=== PATIENT | female | born 1945 | race Caucasian/White ===

== ENCOUNTER → 2019-07-25 16:59 | Outpatient (CLI) | payer MEDICARE, MEDICAID, SELFPAY ==
[2019-07-25 17:26] LABS: Basophils % 0.8 % (0.1-2.0); Eosinophils # 0.2 K/mm3 (0.0-0.4); Eosinophils % 3.3 % (0.1-12.0); Hematocrit 33.1 % (37.0-47.0); Hemoglobin 10.2 g/dL (12.2-16.2); Lymphocytes # 1.1 K/mm3 (0.7-4.5); Lymphocytes % 22.4 % (10-50); Mean Corpuscular HGB Conc 30.8 g/dL (31.8-35.4); Mean Corpuscular Hemoglobin 27.3 pg (27.0-31.2); Mean Corpuscular Volume 88.5 fl (81-99); Mean Platelet Volume 8.2 fl (7.4-10.4); Monocytes # 0.2 K/mm3 (0.1-1.0); Monocytes % 4.5 % (1.7-9.3); Neutrophils # 3.4 K/mm3 (1.8-7.8); Platelet Count 207 K/mm3 (142-424); Red Blood Count 3.74 M/mm3 (4.20-5.40); Red Cell Distribution Width 14.5 % (11.5-17.5); White Blood Count 4.9 K/mm3 (4.8-10.8)
[2019-07-25 17:59] LABS: Erythrocyte Sedimentation Rate 57 mm/hr (0-30)
[2019-07-25 18:18] LABS: Alanine Aminotransferase 25 U/L (12-78); Albumin Level 3.2 gm/dL (3.4-5.0); Albumin/Globulin Ratio 0.8 (1.1-1.8); Alkaline Phosphatase 222 U/L (46-116); Anion Gap 16.5 mEq/L (5-15); Aspartate Amino Transferase 46 U/L (15-37); Bilirubin,Total 0.7 mg/dL (0.2-1.0); Blood Urea Nitrogen 18 mg/dL (7-18); Calcium 8.9 mg/dL (8.5-10.1); Carbon Dioxide 22 mmol/L (21.0-32.0); Chloride 108 mmol/L (98-107); Chol/HDL Ratio 2.5 (1-3.5); Cholesterol 139 mg/dL (140-200); Creatinine,Serum 1.07 mg/dL (0.55-1.02); Estimated Glomerular Filt Rate 50 ml/min (>60); GFR (African American) 60 ML/MIN (>60); Globulin 4.1 gm/dl (1.3-3.2); Glucose 81 mg/dL (74-106); HDL Cholesterol 55 mg/dL (29-89); LDL Cholesterol 69 mg/dL (0-130); Potassium 4.5 mmoL/L (3.5-5.1); Sodium 142 mmol/L (136-145); T4 (Thyroxine) 9.2 ug/dl (4.7-13.3); Thyroid Stimulating Hormone 2.89 uIU/ml (0.358-3.740); Total Protein,Serum 7.3 gm/dL (6.4-8.2); Triglycerides 77 mg/dL (30-200); VLDL Cholesterol 15 mg/dL (0-40)
[2019-07-25 19:43] LABS: C-Reactive Protein < 0.2 mg/dL (0.0-0.9)
[2019-07-27 08:12] LABS: Iron 40 ug/dL (27-139); UIBC 350 ug/dL (118-369)
[2019-07-27 20:03] LABS: Iron Saturation 10 % (15-55)
== END ==
PROVIDERS: Visit Provider Nurse Practitioner Family
DX: I10 Essential (primary) hypertension (principal); M79.89 Other specified soft tissue disorders; R29.898 Other symptoms and signs involving the musculoskeletal system; D64.9 Anemia, unspecified
CPT/HCPCS: 80053; 80061; 83540; 83550; 84436; 84443; 85025; 85651; 86140

== ENCOUNTER → 2019-08-19 10:52 | Outpatient (CLI) | payer MEDICARE, MEDICAID, SELFPAY ==
--- NOTE | 2019-08-19 | CA_ITS ---
APPROVED REPORT Exam: Pharmacologic Technologist: Rowan Ponce Ht: 4 ft 11 in Wt: 183 lbs BSA: 1.78 m2 HR: 63 bpm BP: 119/58 mmHg Indications: Edema, Abnormal EKG Medical History Medications: Omeprazole,,,,, Furosemide (LASIX),,,,, Vitamin D3,,,,, Losartan,,,,, SpirOnolactone,,,,, NYstatin,,,,, Clobetasol,,,,, Stress Test Details Test: LEXISCAN HR Resting HR: 68 bpm Max Heart Rate (APMHR): 144 bpm Max HR Achieved: 106 bpm Target HR (85% APMHR): 122 bpm % of APMHR: 73 Recovery HR: 96 bpm BP Resting BP: 119.0/58.0 mmHg Max BP: 137.0/53.0 mmHg Recovery BP: 118.0/48.0 mmHg ECG Clinical Exercise duration: 04:02 min Highest Stage Achieved: Exercise capacity: 1.0 METs Stress ECG Conclusion Resting ECG: Sinus rhythm Lexiscan portion complete. Symptoms: Shortness of breath at peak infusion, resolved in recovery. No chest pain. Arrhythmias/Ectopy: No ectopy noted. ST-T Changes: less than 1.5mm ST Depression. Conclusion: Images to follow. Test Summary REST . . . . . . . Resting REST 10:32 . . 68 . 119/ 58 . . Stage 1 01:00 . . 100 . . . . Stage 2 01:00 . . 106 . . . . Stage 3 01:00 . . 96 . 129/ 55 . . Stage 4 01:00 . . 96 . 131/ 59 . . Stage 4 01:02 . . 97 . 131/ 59 . Stop exercise at 04:02 RECOVERY 01:00 . . 95 . 137/ 53 . . RECOVERY 02:00 . . 97 . 137/ 53 . . RECOVERY 03:00 . . 95 . 137/ 53 . . RECOVERY 04:00 . . 87 . 117/ 51 . . RECOVERY 04:55 . . 96 . 118/ 48 . . Electronically signed by : Krishan Turner, 08/19/2019 18:49:06
--- NOTE | 2019-08-19 10:54 | CA_ITS ---
APPROVED REPORT EXAM: Comprehensive 2D, Doppler, and color-flow Echocardiogram General Road Production Manager: Aarti Dyer RDCS Ht: 4 ft 11 in Wt: 182lbs BSA: 1.77 BP: 155/57 mmHg Indications: edema,abn ekg 2D Dimensions LVOT 1.70 cm (M/F) 1.5-2.5 M-Mode Dimensions RVDd 1.41 cm (0.9-2.6) LVDd 5.63 cm (3.5-5.7) LVDs 3.96 cm (3.5-5.7) IVSd 1.01 cm (0.6-1.1) PWd 0.94 cm (0.6-1.1) EF (Teich) 56.10% FS 29.70% EDV (Teich) 155.60 mL ESV (Teich) 68.30 mL LV Diastology E/A Ratio 0.75 Mitral Valve MV A Velocity 99.00 (40-130 cm/s) Left Ventricle Left atrium is mildly enlarged, left ventricle is normal size, mild concentric left ventricular hypertrophy, visually estimated ejection fraction 55% with no regional wall motion abnormality. Grade 1 diastolic dysfunction seen without tissue Doppler evidence of raise left atrial pressure. Right Ventricle Right atrium and right ventricular mildly enlarged with normal contractility. Aortic Valve Aortic valve is minimally thickened and fibrosed. There is no aortic stenosis aortic insufficiency. Mitral Valve Mitral valve is grossly normal, there is mild mitral regurgitation. Tricuspid Valve Tricuspid valve is grossly normal, there is mild tricuspid regurgitation. Pulmonic Valve Pulmonic valve is poorly visualized. Great Vessels Aortic root is normal size. Pericardium No significant pericardial effusion noted. Conclusion 1. Mildly enlarged left atrium, normal left ventricular size, mild concentric left ventricular hypertrophy, visually estimated ejection fraction 55% with no regional wall motion abnormality, grade 1 diastolic dysfunction seen without tissue Doppler evidence of raise left atrial pressure. 2. Mildly enlarged right ventricle with normal contractility. 3. Mild mitral and tricuspid regurgitation. 4. No significant pericardial effusion noted. Electronically signed by : Krishan Turner, 08/20/2019 06:03:33
--- NOTE | 2019-08-19 12:36 | NM_ITS ---
APPROVED REPORT Exam: Nuclear Stress Test Indication: edema, sob Patient Location: Outpatient Stress Tech: Rowan Ponce MI Tech:Kalina Dai ROXI RT (R)(N)(M) Ht: 4 ft 11 in Wt: 183 lbs Bra Size: c HR: 63 bpm BP: 119/58 mmHg BSA: 1.78 m2 BMI: 36.9 History: edema, sob Procedure: Patient received a 0.4 mg of intravenous Lexiscan, resting heart rate 63 bpm, resting blood pressure 119/58 mmHg, with Lexiscan maximum heart rate achived was 99 bpm which is Less than 85 % of the maximum predicted heart rate and blood pressure was 129/55 mmHg. With Lexiscan, patient denied any complaint of chest pain. Electrocardiogram Resting electrocardiogram showed sinus rhythm, with Lexiscan there is less than 1.[address] segment depression noted from the baseline EKG. The EKG portion of the Lexiscan Myoview is nondiagnostic. Cardiac Stress and Resting SPECT Images: Cardiac Stress and Resting SPECT images were obtained using technetium 99m Myoview 30.3 mCi stress and 10.93 mCi at rest. Gated SPECT with analysis of segmental wall motion and calculation of the ejection fraction also done. Cardiac stress and resting SPECT images show uniform myocardial activity without segmental perfusion abnormality, computer derived ejection fraction is over 65% with no regional wall motion abnormality, right ventricle is normal size and contractility. Conclusion: 1. The EKG portion of the Lexiscan Myoview is nondiagnostic. 2. No scintigraphic evidence of reversible ischemia seen, computer derived ejection fraction is over 65% with no regional wall motion abnormality, right ventricle is normal size and contractility. 3. Normal Lexiscan Myoview study. Electronically signed by : Krishan Turner, 08/19/2019 18:51:57
--- NOTE | 2019-08-19 14:17 | HMH.ITSHM ---
Current Home Medications as stated by this patient María Zarco or medical center representative. []SPIRONOLACTONE OMEPRAZOLE NYSTATIN LOSARTAN FUROSEMIDE CLOBETASOL VIT D3
== END ==
PROVIDERS: PCP Nurse Practitioner Family; Visit Provider Urology
DX: R60.0 Localized edema (principal); I10 Essential (primary) hypertension; R06.02 Shortness of breath; R60.9 Edema, unspecified; R94.31 Abnormal electrocardiogram [ECG] [EKG]
CPT/HCPCS: 78452; 93017; 93306; A9502; J2785

== ENCOUNTER → 2019-08-29 15:24 | Outpatient (CLI) | payer MEDICARE, MEDICAID, SELFPAY | PROVIDERS: Visit Provider Internal Medicine Cardiovascular Disease | DX: R06.02 Shortness of breath (principal) | CPT/HCPCS: 36415; 83880 ==

== ENCOUNTER 2021-03-05 11:10 | Inpatient (IN) | payer MEDICARE, MEDICAID, SELFPAY ==
[2021-03-05] VITALS (18 sets, daily range): BP systolic 98–140; BP diastolic 50–74; PULSE 73–98; RESP 16–22; TEMP 36.6–37.5; O2SAT 96–99; BMI 30.9; BMI 23.6
--- NOTE | 2021-03-05 11:19 | HMH.EDGENADL ---
ED Disposition Clinical Impression: Acute urinary retention, YURI (acute kidney injury) Hematuria Qualifiers: Hematuria type: gross Qualified Code(s): R31.0 - Gross hematuria Disposition: Admitted as Observation Condition on Discharge: Good Referrals: Hector Interiano MD [Primary Care Provider] - Time of Disposition: 15:49 - Critical Care Critical Care Time: No Attestation: On , the high probability of a clinically significant, sudden or life threatening deterioration of the following system(s) required my full and direct attention, intervention and personal management. The time I documented below is in addition to time spent performing reported procedures but includes the following listed in this critical care notation. Medical Decision Making - Medical Records Medical records reviewed: Yes: I reviewed the patient's medical records. - Jesse Inquiry Pt receiving controlled substance: No Vital Signs: 03/05/21 11:10 03/05/21 11:30 03/05/21 12:15 Temperature 97.8 F Temperature Source Oral Pulse Rate 73 76 Pulse Rate [Left Radial] 75 Respiratory Rate 20 Blood Pressure 114/62 Blood Pressure [Right Arm] 114/66 Blood Pressure Mean Blood Pressure Mean [Right Arm] 82 Blood Pressure Source [Right Arm] Automatic Cuff Blood Pressure Position [Right Arm] Sitting 02 Sat by Pulse Oximetry 99 97 98 Oxygen Delivery Method Room Air 03/05/21 12:31 03/05/21 13:00 03/05/21 13:30 Temperature Temperature Source Pulse Rate 82 77 80 Pulse Rate [Left Radial] Respiratory Rate 20 20 18 Blood Pressure 110/55 L 115/55 L 130/54 L Blood Pressure [Right Arm] Blood Pressure Mean 67 66 79 Blood Pressure Mean [Right Arm] Blood Pressure Source [Right Arm] Blood Pressure Position [Right Arm] 02 Sat by Pulse Oximetry 99 98 97 Oxygen Delivery Method 03/05/21 14:00 03/05/21 14:30 Temperature Temperature Source Pulse Rate 81 82 Pulse Rate [Left Radial] Respiratory Rate 18 18 Blood Pressure 103/50 L 128/54 L Blood Pressure [Right Arm] Blood Pressure Mean 82 78 Blood Pressure Mean [Right Arm] Blood Pressure Source [Right Arm] Blood Pressure Position [Right Arm] 02 Sat by Pulse Oximetry 99 99 Oxygen Delivery Method - Lab Data Lab results reviewed: Yes: I reviewed the patient's lab results. Lab Results 03/05/21 11:15: WBC 6.2, RBC 3.88 L, Hgb 10.2 L, Hct 32.7 L, MCV 84.3, MCH 26.3 L, MCHC 31.2 L, RDW 18.7 H, Plt Count 131 L, MPV 8.8, Neut % (Auto) 66.1, Lymph % (Auto) 24.4, [place] % (Auto) 5.0, Eos % (Auto) 4.0, Baso % (Auto) 0.6, Neut # (Auto) 4.1, Lymph # (Auto) 1.5, [place] # (Auto) 0.3, Eos # (Auto) 0.3, Baso # (Auto) 0.0 03/05/21 11:15: Sodium 133 L, Potassium 4.1, Chloride 110 H, Carbon Dioxide 15 L, Anion Gap 12.1, BUN 49 H, Creatinine 2.30 H, Estimated Creat Clear 26, Estimated GFR 21 L, Est GFR ( Amer) 25 L, Glucose 98, Calcium 7.8 L 03/05/21 11:15: NT-Pro-B Natriuret Pep 967 H 03/05/21 14:00: Urine Color Red, Urine Appearance Turbid, Urine pH 8.0, Ur Specific [place] 1.015, Urine Protein 3+, Urine Glucose (UA) Trace, Urine Ketones 1+, Urine Blood 3+, Urine Nitrate Positive, Urine Bilirubin Negative, Urine Urobilinogen 4.0, Ur Leukocyte Esterase 2+ A, Urine RBC Tntc, Urine WBC 10-20, Ur Squamous Epith Cells 10-20, Urine Bacteria 2+ 03/05/21 14:50: Chlamy pneumoniae PCR Not detected, Adenovirus (PCR) Not detected, B. pertussis DNA (PCR) Detected A, Coronavirus OC43 (PCR) Not detected, Coronavirus HKU1 (PCR) Not detected, Coronavirus 229E (PCR) Not detected, SARS-CoV-2 (PCR) Not detected, Coronavirus NL63 (PCR) Not detected, Human Metapneumovir PCR Not detected, Influenza A (H1) PCR Not detected, Influ A (H1N1/09) PCR Not detected, Influenza A (H3) PCR Not detected, Influenza Type A (PCR) Not detected, Influenza Type B (PCR) Not detected, M. pneumoniae (PCR) Not detected, Parainfluenza 1 (PCR) Not detected, Parainfluenza 2 (PCR) Not detected, Parainfluenza 3 (PCR)
[2021-03-05 11:26] LABS: Basophils % 0.6 % (0.1-2.0); Eosinophils # 0.3 K/mm3 (0.0-0.4); Hematocrit 32.7 % (37.0-47.0); Hemoglobin 10.2 g/dL (12.2-16.2); Lymphocytes # 1.5 K/mm3 (0.7-4.5); Lymphocytes % 24.4 % (10-50); Mean Corpuscular HGB Conc 31.2 g/dL (31.8-35.4); Mean Corpuscular Hemoglobin 26.3 pg (27.0-31.2); Mean Corpuscular Volume 84.3 fl (81-99); Mean Platelet Volume 8.8 fl (7.4-10.4); Monocytes # 0.3 K/mm3 (0.1-1.0); Neutrophils # 4.1 K/mm3 (1.8-7.8); Neutrophils % 66.1 % (37.0-80.0); Platelet Count 131 K/mm3 (142-424); Red Blood Count 3.88 M/mm3 (4.20-5.40); Red Cell Distribution Width 18.7 % (11.5-17.5); White Blood Count 6.2 K/mm3 (4.8-10.8)
[2021-03-05 11:45] LABS: Anion Gap 12.1 mEq/L (5-15); Blood Urea Nitrogen 49 mg/dl (7-17); Calcium 7.8 mg/dl (8.4-10.2); Carbon Dioxide 15 mmol/L (22.0-30.0); Chloride 110 mmol/L (98-107); Creatinine Clearance Estimated 26 mL/min (50-200); Estimated Glomerular Filt Rate 21 ml/min (>60); GFR (African American) 25 ML/MIN (>60); Glucose 98 mg/dl (74-100); Potassium 4.1 mmoL/L (3.5-5.1); Sodium 133 mmol/L (136-145)
--- NOTE | 2021-03-05 12:14 | CT_ITS ---
PROCEDURE: CT ABDOMEN PELVIS WO CON CLINICAL INDICATION: pain, vaginal bleeding? 1 COMPARISON: No exams were available for comparison TECHNIQUE: Axial images obtained with sagittal and coronal reformats. All CT scans at the facility use one or more dose reduction, viz: automated exposure control, ma/kV adjustment per patient size (including targeted exams where dose is matched to indication, i.e. head), or iterative reconstruction technique. FINDINGS: Lower thorax: There is a somewhat ill-defined opacity in the anterior segment right lower lobe appearance suggesting postinflammatory scarring although a minimal superimposed pneumonic infiltrate cannot be entirely excluded. The left lung base is clear. There is no pleural fluid on either side. There is moderate generalized cardiomegaly. ABDOMEN: Liver: No masses or biliary dilatation. Gallbladder: Post cholecystectomy Pancreas: No masses or peripancreatic fluid collections. Spleen: There is borderline splenomegaly but there are no focal lesions. Adrenals: unremarkable Kidneys/ureters: The kidneys are lower limits of normal in size. There are nonobstructing calculi in the upper and lower pole calices and pelvis of the left kidney. There is a prominent extra renal right renal pelvis with possibly mild congenital UPJ obstruction. ABDOMEN & PELVIS: Stomach bowel: Nondistended. No obvious mass or thickening. The small bowel is grossly normal. There is moderate scattered stool and gas seen throughout the colon. There is mild ptosis of the transverse colon and there is mild scattered diverticulosis of the sigmoid colon but there is no diverticulitis. The rectum is normal. Peritoneum: No abnormal fluid collections. No obvious inflammatory changes. No free air. Lymph nodes: No enlarged lymph nodes apparent. Vasculature: There is prompt diffuse arthrosclerotic calcification of the infrarenal aorta and proximal iliac arteries but there is no aneurysm. Bones: There is generalized osteopenia of the lower thoracic and lumbar spine. There is a markedly sclerotic appearing L1 vertebral body with compression in appearance suggest possibly previous kyphoplasty of a compressed vertebrae. There is approximately 50 percent loss of height anteriorly. There is minor non recent compression of T12. PELVIS: Reproductive: Post hysterectomy there are multiple surgical clips in the lower abdomen just to the left of midline Bladder: The urinary bladder is moderately distended with urine and there is a somewhat ill-defined mass and order Trena at the base of the urinary bladder with moderately high intensity. A bladder mass cannot be excluded. Appendix: Post appendectomy IMPRESSION: Moderately distended urinary bladder with a moderately high attenuation mass and/or debris at the base of the urinary bladder. Prominent extrarenal pelvis right kidney with possible mild congenital UPJ obstruction. Probable right lower lobe chronic scarring versus combination of scarring and possible mild acute infiltrate Dictated by: Dr. Fermin Holloway MD 03/05/2021 13:07 Dr. Fermin Holloway MD in [place] 03/05/2021 13:07
[2021-03-05 12:34] LABS: NT Pro Brain Natriuretic Pep. 967 pg/mL (0-450)
--- NOTE | 2021-03-05 13:29 | PC.NURSE ---
Called Dr Snow's office to use bladder scanner for patient.
--- NOTE | 2021-03-05 13:55 | PC.NURSE ---
GROSSLY BLOODY URINE NOTED 600CC OUTPUT
--- NOTE | 2021-03-05 14:00 | PC.NURSE ---
GRANADO PLACED WITH BLOOD AND CLOTS NOTED BLADDER IRRIGATION PER 3 WAY GRANADO. BLOOD CLOTS NOTED.
[2021-03-05 14:46] LABS: Microscopic, Urine URINE MICROSCOPIC (MICROSCOPIC)
[2021-03-05 14:50] LABS: Appearance,Urine TURBID (Clear); Bilirubin,Urine Negative (Negative); Blood, Urine 3+ (Negative); Color,Urine RED (Yellow); Glucose,Urine (UA) TRACE (Negative); Ketones,Urine 1+ (Negative); Leukocyte Esterase,Urine 2+ (Negative); Nitrate,Urine POSITIVE (Negative); Protein,Urine 3+ (Negative); Specific Gravity, Urine 1.015 (1.005-1.030)
[2021-03-05 15:02] LABS: Bacteria,Urine 2+ /lpf; RBC,Urine TNTC #/hpf (0-3)
[2021-03-05 15:02] LABS: Adenovirus,PCR Not Detected (NotDetected); Chlamydophila Pneumoniae, PCR Not Detected (NotDetected); Coronavirus 19, PCR Not Detected (NotDetected); Coronavirus 229E Not Detected (NotDetected); Coronavirus NL63 Not Detected (NotDetected); Coronavirus OC43 Not Detected (NotDetected); Coronovirus HKU1,PCR Not Detected (NotDetected); Human Metapneumovirus Not Detected (NotDetected); Influenza A, PCR Not Detected (NotDetected); Influenza AH1, 2009 Not Detected (NotDetected); Influenza AH1, PCR Not Detected (NotDetected); Influenza AH3,PCR Not Detected (NotDetected); Influenza B, PCR Not Detected (NotDetected); Mycoplasma Pneumoniae, PCR Not Detected (NotDetected); Parainfluenza 1, PCR Not Detected (NotDetected); Parainfluenza 2, PCR Not Detected (NotDetected); Parainfluenza 3, PCR Not Detected (NotDetected); Parainfluenza 4, PCR Not Detected (NotDetected); Respiratory Syncytial Virus Not Detected (NotDetected); Rhinovirus/Enterovirus Not Detected (NotDetected)
[2021-03-05 16:25] LABS: Bordetella Pertussis Detected (NotDetected)
--- NOTE | 2021-03-05 18:00 | PC.NURSE ---
PT C/O INCREASING PAIN AND ABD DISTENTION. BLADDER IRRIGATED WITH GARY AND STERILE WATER. LARGE CLOTS RETURNED. GRANADO CATH CHANGED FROM 16 FR TO 20FR. PT YULIET WELL. IRRIGATION RESTARTED AT 200CC/HR. URINE IN TUBING CLEARING TO PINK
--- NOTE | 2021-03-05 18:44 | PC.NURSE ---
REPORT CALLED TO FLOOR
--- NOTE | 2021-03-05 18:53 | PC.NURSE ---
Pt arrived to the floor at this time.
--- NOTE | 2021-03-06 03:21 | PC.NURSE ---
NO acute changes overnight. Pt has c/o of pain in her bladder area x1, morphine given x1 with favorable results. Lungs CTA, on room air. CBI is in place, urine draining clear to light pink via gray. Bowel sounds x4, abd soft and nontender. No BM this shift. PT has rested well. IV patent, LR @ 50. VSS, call light in reach, no concerns at this time.
[2021-03-06 04:38] VITALS: BP 119/41; PULSE 88; RESP 18; TEMP 36.3; O2SAT 90
[2021-03-06 04:59] VITALS: BMI 23.8
[2021-03-06 07:04] LABS: Basophils % 0.6 % (0.1-2.0); Eosinophils # 0.3 K/mm3 (0.0-0.4); Eosinophils % 4.2 % (0.1-12.0); Hematocrit 32.8 % (37.0-47.0); Hemoglobin 10.4 g/dL (12.2-16.2); Lymphocytes # 1.3 K/mm3 (0.7-4.5); Lymphocytes % 21.7 % (10-50); Mean Corpuscular HGB Conc 31.8 g/dL (31.8-35.4); Mean Corpuscular Hemoglobin 26.7 pg (27.0-31.2); Mean Corpuscular Volume 83.9 fl (81-99); Mean Platelet Volume 7.4 fl (7.4-10.4); Monocytes # 0.4 K/mm3 (0.1-1.0); Monocytes % 5.9 % (1.7-9.3); Neutrophils # 4.1 K/mm3 (1.8-7.8); Neutrophils % 67.5 % (37.0-80.0); Platelet Count 105 K/mm3 (142-424); Red Cell Distribution Width 19.2 % (11.5-17.5); White Blood Count 6.1 K/mm3 (4.8-10.8)
[2021-03-06 07:20] LABS: Anion Gap 12.6 mEq/L (5-15); Blood Urea Nitrogen 50 mg/dl (7-17); Calcium 7.4 mg/dl (8.4-10.2); Carbon Dioxide 11 mmol/L (22.0-30.0); Chloride 111 mmol/L (98-107); Creatinine Clearance Estimated 18 mL/min (50-200); Estimated Glomerular Filt Rate 21 ml/min (>60); GFR (African American) 25 ML/MIN (>60); Glucose 103 mg/dl (74-100); Potassium 4.6 mmoL/L (3.5-5.1); Sodium 130 mmol/L (136-145)
[2021-03-06 07:44] VITALS: BP 147/63; PULSE 91; RESP 20; TEMP 36.8; O2SAT 98
[2021-03-06 07:57] VITALS: PULSE 91; RESP 20; O2SAT 98
--- NOTE | 2021-03-06 10:43 | XR_ITS ---
PROCEDURE INFORMATION: Exam: XR Chest Exam date and time: 03/06/2021 10:43 AM Age: 75 years old Clinical indication: Shortness of breath; Additional info: SOB TECHNIQUE: Imaging protocol: XR of the chest. Views: 1 view. COMPARISON: CR XR CHEST AP 09/03/2019 12:16 PM FINDINGS: Lungs: Atelectasis and/or infiltrative changes noted within both lung bases. Pleural spaces: Unremarkable. No pleural effusion. No pneumothorax. Heart/Mediastinum: The heart demonstrates mild diffuse enlargement. Bones/joints: Vertebroplasty changes noted within the lumbar spine. The thoracic spine demonstrates mild degenerative changes at multiple levels. Other findings: 8 mm nodule projects over the left upper lobe. IMPRESSION: 1. 8 mm nodule projects over the left upper lobe. Further evaluation with CT scan of the chest may be of further benefit in follow-up. 2. Atelectasis and/or infiltrative changes noted within both lung bases. 3. The heart demonstrates mild diffuse enlargement.
--- NOTE | 2021-03-06 10:45 | HMH.HP ---
*Admission Date: 03/05/21 *Chief complaint: blood in urine *History of present illness: this pt was sent from [facility] with blood in urine-75yo F presents to the emergency department from her [facility] with concern for vaginal bleeding. Patient reports she has abdominal pain has been ongoing for several days. She denies any fever, nausea/vomiting/diarrhea. She denies feeling lightheaded, having chest pain, having shortness of breath. Patient states she is uncertain where the blood is coming from. She does report having a total hysterectomy in the past.yo F evaluated with concern for vaginal bleeding. After receiving history from the patient that she had a hysterectomy, vaginal bleeding seems less likely. Routine laboratory studies are collected and plan for CT of the abdomen and pelvis with IV contrast. Sadly the patient's creatinine is 2.3. This is a significant increase from previous evaluation and therefore she cannot have IV contrast. A plain study is collected and demonstrates mass versus significant debrides of a bladder along with a severely distended bladder. Patient attempted to void within the last hour and bladder scan at this time shows 595 cc of urine. Significant blood was appreciated on physical exam and with initial catheter insertion. Therefore, a three-way Ferguson was placed for CBI. Patient has had significant hematuria. Several clots have been flushed. Patient's hemoglobin and hematocrit are unremarkable however. UA is slightly concerning for urinary tract infection. We will start the patient on antibiotics at this time. Patient will need to be admitted for further monitoring of her YURI and hematuria. Dr. Interiano is consulted for admission. Discussed all results and findings with the family at bedside. I did mention concern for possible cancer given bladder outlet obstruction, hematuria. Patient was discussed with Dr. Interiano. Tentative plan was to discontinue CBI and monitor patient's Ferguson output. If stable, would discharge to the [facility] where she could continue receiving IV fluids to improve her YURI over the weekend. Sadly, the patient as clotted off her Ferguson catheter and is complaining of abdominal pain and distention. Hematuria has worsened with hand irrigation. The patient will need to be admitted for continuous bladder irrigation. pt with persistent bleeding and will need to be admitted [facility] History I have reviewed the patient's past medical history: Yes Medical History: Reports:: Gall Bladder Disease, Gastroesophageal Reflux Disease(GERD), Hypertension Denies:: Internal Pacemaker, Seizures *Have you ever received a pneumonia vaccine?: Yes *Have you received a flu vaccine this season?: Yes Other Medical History: Reports: Anemia, Arthritis Laterality Cases: Right: Arthroscopy Shoulder Other Surgeries: Yes: Appendectomy, Cholecystectomy, Colonoscopy, Hysterectomy-Total. No: Pacemaker Amputation: No Fractures: Yes - *Social History Smoking Status: Former smoker Alcohol Intake: never Substance Use Type: denies use *Occupational Status:: retired Household Members: family *Travel in the last 8 weeks: None Family Hx:: Unable to obtain Review of Systems - Review of Systems Review of systems:: pertinent systems reviewed and negative unless documented below - Constitutional Denies fever(s) - Eyes Denies blurry vision - ENT Denies sore throat - *Cardiovascular Denies chest pain, Denies shortness of breath - *Respiratory Denies cough - *Gastrointestinal Denies abdominal pain - *Genitourinary Reports blood in urine - *Musculoskeletal Denies joint pain - Integumentary/Breasts Denies rash - *Neurologic Denies seizure-like activity - Psychiatric Denies anxiety Meds Home Medications Medication Instructions Recorded Confirmed Type Dicyclomine HCl [Bentyl 10mg 10 mg PO DAILY 03/05/21 03/05/21 History capsule] Donepezil HCl [Aricept 10mg 10 mg PO HS 03/05/21 03/05/21
[2021-03-06 10:54] LABS: Alanine Aminotransferase 32 U/L (12-78); Albumin Level 2.7 g/dl (3.5-5.0); Alkaline Phosphatase 223 U/L (38-126); Aspartate Amino Transferase 54 U/L (14-36); Bilirubin,Direct 0.8 mg/dl (0.0-0.4); Bilirubin,Indirect 0.1 mg/dL (0.0-0.9); Bilirubin,Total 0.9 mg/dl (0.2-1.3); Total Protein,Serum 5.7 g/dl (6.3-8.2)
--- NOTE | 2021-03-06 11:22 | P.CONPHA_ITS ---
[facility] VTE Monitoring - Patient Demographics Admission date: 03/06/21 Report Date: 03/06/21 Time: 11:22 Allergies/Adverse Reactions: Patient Allergies aspirin Allergy (Mild, Verified 09/03/19 11:53) cephalexin [From Keflex] Allergy (Mild, Verified 09/03/19 11:53) sick to stomach codeine Allergy (Mild, Verified 09/03/19 11:53) Penicillins Allergy (Mild, Verified 09/03/19 11:53) tramadol Allergy (Mild, Verified 09/03/19 11:53) Height: 1.52 m Weight: 55.055 kg Patient Problems: Current Active Problems Acute urinary retention (Acute) YURI (acute kidney injury) (Acute) Hematuria (Acute) Thrombocytopenia (Acute) UTI (urinary tract infection) (Acute) Pertussis (Acute) Hypothyroidism (acquired) (Acute) Bladder mass (Acute) Anemia (Chronic) - VTE Risk Labs: VTE Related Lab Results Hgb 10.4 g/dL (12.2-16.2) L 03/06/21 06:41 Hct 32.8 % (37.0-47.0) L 03/06/21 06:41 Plt Count 105 K/mm3 (142-424) L 03/06/21 06:41 BUN 50 mg/dl (7-17) H 03/06/21 06:41 Creatinine 2.30 mg/dl (0.52-1.04) H 03/06/21 06:41 Estimated Creat Clear 18 mL/min (50-200) 03/06/21 06:41 - Prophylaxis Types of VTE Prophylaxis: IPCS Knee High (ICDS ORDERED)
--- NOTE | 2021-03-06 11:24 | ECG_ITS ---
APPROVED REPORT Exam: Resting ECG HR:80 bpm ECG Measurements Heart Rate 80 AXES SC 178 P 66 QRSd 72 QRS -34 QT 392 T -7 QTc 452 Conclusion Normal sinus rhythm Left axis deviation Old anterolateral and inferior changes Abnormal ECG Electronically signed by : Michael Ratliff, 03/07/2021 07:52:26
[2021-03-06 11:43] LABS: INR 1.16 (0.9-1.1); Prothrombin Time 13.5 seconds (10.1-12.5)
--- NOTE | 2021-03-06 15:38 | PC.NURSE ---
Pt has been pleasant and cooperative this shift. A&O X4 with occasional confusion. No complaints of pain. Pt complained of nausea and had 2 episodes of vomiting this AM. Zofran administered and pt has had no complaints since. Pt is currently on room air with sats. >90%. Lungs CTA. 3+ pitting edema noted to BLE. Skin is C/D/I. Pt has been turned/repositioned Q2H this shift. F/C is patent and draining clear, pink urine at bedside to gravity. CBI in place. No BM today. Lower extremities are currently elevated and heel protectors are in place. Appetite is poor and pt only eats about 15-20% of all meals. 20 G peripheral IV in the LT AC is patent and infusing LR @ 50 ML/HR. VSS. Call light within reach. Will continue to monitor.
[2021-03-06 15:57] VITALS: BP 100/51; PULSE 87; RESP 18; TEMP 36.9; O2SAT 90
[2021-03-06 20:00] VITALS: BP 89/56; PULSE 93; RESP 16; TEMP 37; O2SAT 96
--- NOTE | 2021-03-07 03:14 | PC.NURSE ---
Pt has been alert to self and situation but was unable to identify where she was. Pt has had no c/o pain this shift. Lungs CTA, on room air. Bowel sounds x4, abd soft and nontender. No BM this shift. Pt had an episode where she became anxious and began crying, she thought she was seeing someone in her room, 0.5mg of Ativan was given, pt was able to rest comfortably since. pt has been turned q2h, heels floated with protectors on. New IV was placed in the left wrist, LR @ 50 infusing. CBI is continuing to infuse, urine is clear to light yellow via gray. VSS, call light in reach, no concerns at this time.
[2021-03-07 04:00] VITALS: BP 94/47; PULSE 96; RESP 16; TEMP 36.9; O2SAT 92
[2021-03-07 05:00] VITALS: BMI 24.3
[2021-03-07 06:49] LABS: Basophils % 0.3 % (0.1-2.0); Eosinophils # 0.1 K/mm3 (0.0-0.4); Eosinophils % 2.5 % (0.1-12.0); Hematocrit 26.1 % (37.0-47.0); Lymphocytes % 21.3 % (10-50); Mean Corpuscular HGB Conc 33.1 g/dL (31.8-35.4); Mean Corpuscular Hemoglobin 27.3 pg (27.0-31.2); Mean Corpuscular Volume 82.5 fl (81-99); Mean Platelet Volume 7.6 fl (7.4-10.4); Monocytes # 0.3 K/mm3 (0.1-1.0); Monocytes % 5.8 % (1.7-9.3); Neutrophils # 3.1 K/mm3 (1.8-7.8); Neutrophils % 70.1 % (37.0-80.0); Platelet Count 103 K/mm3 (142-424); Red Blood Count 3.16 M/mm3 (4.20-5.40); Red Cell Distribution Width 19.3 % (11.5-17.5); White Blood Count 4.5 K/mm3 (4.8-10.8)
[2021-03-07 06:58] LABS: Hemoglobin 8.6 g/dL (12.2-16.2)
[2021-03-07 07:03] LABS: Anion Gap 12.8 mEq/L (5-15); Blood Urea Nitrogen 52 mg/dl (7-17); Carbon Dioxide 12 mmol/L (22.0-30.0); Chloride 110 mmol/L (98-107); Creatinine Clearance Estimated 16 mL/min (50-200); Estimated Glomerular Filt Rate 18 ml/min (>60); GFR (African American) 22 ML/MIN (>60); Glucose 79 mg/dl (74-100); Potassium 4.8 mmoL/L (3.5-5.1); Sodium 130 mmol/L (136-145)
[2021-03-07 08:00] VITALS: BP 90/48; PULSE 93; RESP 20; TEMP 36.9; O2SAT 92
--- NOTE | 2021-03-07 10:59 | HMH.ACPN2 ---
Internal Medicine - PN: Subj *Date: 03/07/21 *Time: 10:59 Interval history: pt with no specific c/o and will change abx Exam Vital signs and Labs for Last 24 Hours: Temp Pulse Resp BP Pulse Ox 98.4 F 93 H 20 90/48 L 92 L 03/07/21 08:00 03/07/21 08:00 03/07/21 08:00 03/07/21 08:00 03/07/21 08:00 Laboratory Results - last 24 hr 03/06/21 06:41: Total Bilirubin 0.9, Direct Bilirubin 0.8 H, Indirect Bilirubin 0.1, Alkaline Phosphatase 223 H, Total Protein 5.7 L, Albumin 2.7 L 03/06/21 11:13: PT 13.5 H, INR 1.16 H 03/07/21 06:20: WBC 4.5 L D, RBC 3.16 L, Hgb 8.6 L D, Hct 26.1 L, MCV 82.5, MCH 27.3, MCHC 33.1, RDW 19.3 H, Plt Count 103 L, MPV 7.6, Neut % (Auto) 70.1, Lymph % (Auto) 21.3, [place] % (Auto) 5.8, Eos % (Auto) 2.5, Baso % (Auto) 0.3, Neut # (Auto) 3.1, Lymph # (Auto) 1.0, [place] # (Auto) 0.3, Eos # (Auto) 0.1, Baso # (Auto) 0.0 03/07/21 06:20: Sodium 130 L, Potassium 4.8, Chloride 110 H, Carbon Dioxide 12 L, Anion Gap 12.8, BUN 52 H, Creatinine 2.60 H, Estimated Creat Clear 16, Estimated GFR 18 L*, Est GFR ( Amer) 22 L, Glucose 79 D, Calcium 7.0 L I & O for Last 24 hours: Intake & Output 03/04/21 03/05/21 03/06/21 03/07/21 11:59 11:59 11:59 11:59 Intake Total 620 / 620 1111 / 1111 Output Total 120 / 120 Balance 620 / 620 991 / 991 Weight 180 lb 121 lb 6 oz 124 lb 2 oz Microbiology Reports for the Last 24 Hours: Microbiology 03/05/21 14:00 Urine,Catheterized Urine Culture - Final Proteus mirabilis - Constitutional no acute distress - *Routine HEENT Exam Head: Present: normocephalic Eye: Present: EOMI, PERRL ENT: Present: mucous membranes dry - *Routine Neck Exam Present: supple - *Routine Respiratory Exam Present: CTA bilaterally - *Routine Cardiovascular Exam Present: RRR - *Routine Abdominal Exam Present: soft - *Routine Extremities Exam Absent: calf tenderness - *Routine Skin Exam Present: intact - *Routine Neurological Exam Present: alert, CN II-XII intact - Routine Psychiatric Exam Present: normal affect Assessment and Plan (1) Thrombocytopenia Status: Acute Category: Medical Code(s): D69.6 - Thrombocytopenia, unspecified (2) YURI (acute kidney injury) Status: Acute Category: Medical Code(s): N17.9 - Acute kidney failure, unspecified (3) Acute urinary retention Status: Acute Category: Medical Code(s): R33.8 - Other retention of urine (4) Hematuria Status: Acute Qualifiers: Hematuria type: gross Qualified Code(s): R31.0 - Gross hematuria Category: Medical Code(s): R31.9 - Hematuria, unspecified (5) Anemia Status: Chronic Qualifiers: Anemia type: other cause Other causes of anemia: other cause, not classified Qualified Code(s): D64.89 - Other specified anemias Category: Medical Code(s): D64.9 - Anemia, unspecified (6) UTI (urinary tract infection) Status: Acute Qualifiers: Urinary tract infection type: site unspecified Hematuria presence: with hematuria Qualified Code(s): N39.0 - Urinary tract infection, site not specified; R31.9 - Hematuria, unspecified Category: Medical Code(s): N39.0 - Urinary tract infection, site not specified (7) Pertussis Status: Acute Category: Medical Code(s): A37.90 - Whooping cough, unspecified species without pneumonia (8) Hypothyroidism (acquired) Status: Acute Category: Medical Code(s): E03.9 - Hypothyroidism, unspecified (9) Bladder mass Status: Acute Category: Medical Code(s): N32.89 - Other specified disorders of bladder (10) Proteus mirabilis infection Status: Acute Category: Medical Code(s): A49.8 - Other bacterial infections of unspecified site
[2021-03-07 15:07] VITALS: BP 99/47; PULSE 85; RESP 17; TEMP 36.7; O2SAT 91
--- NOTE | 2021-03-07 15:55 | PC.NURSE ---
Pt has been pleasant and cooperative this shift. A&O X4 with occasional confusion. No complaints of pain. No N/V. Pt is currently on room air with sats. >90%. Lungs CTA. 3+ pitting edema noted to BLE. Skin is C/D/I. Pt has been turned/repositioned Q2H this shift. F/C is patent and draining clear, yellow urine at bedside to gravity. CBI in place. 1 large, soft, brown stool this shift. Lower extremities are currently elevated and heel protectors are in place. Appetite is poor and pt only eats about 15-20% of all meals. 20 G peripheral IV in the LT AC is patent and infusing LR @ 50 ML/HR. VSS. Call light within reach. Will continue to monitor.
[2021-03-07 20:00] VITALS: BP 102/49; PULSE 89; RESP 20; TEMP 36.7; O2SAT 90
[2021-03-08] VITALS (14 sets, daily range): BP systolic 87–125; BP diastolic 35–64; PULSE 76–95; RESP 14–20; TEMP 36.5–37.2; O2SAT 90–99; BMI 24.7
--- NOTE | 2021-03-08 03:17 | PC.NURSE ---
Pt alert to self and situation this shift and has rested well. No c/o pain. Lungs CTA, on room air. Pt turned q2h, heels floated, heel protectors on. CBI infusing via gray, urine is clear to light yellow. BLE have 3+ pitting edema. IV patent, LR @ 50. VSS, call light in reach, no concerns at this time.
[2021-03-08 07:25] LABS: Basophils % 0.4 % (0.1-2.0); Eosinophils # 0.1 K/mm3 (0.0-0.4); Eosinophils % 2.4 % (0.1-12.0); Hematocrit 24.9 % (37.0-47.0); Hemoglobin 8.1 g/dL (12.2-16.2); Lymphocytes # 0.6 K/mm3 (0.7-4.5); Mean Corpuscular HGB Conc 32.6 g/dL (31.8-35.4); Mean Corpuscular Volume 82.8 fl (81-99); Mean Platelet Volume 7.7 fl (7.4-10.4); Monocytes # 0.2 K/mm3 (0.1-1.0); Monocytes % 6.4 % (1.7-9.3); Neutrophils # 2.3 K/mm3 (1.8-7.8); Neutrophils % 72.9 % (37.0-80.0); Platelet Count 95 K/mm3 (142-424); Red Cell Distribution Width 19.5 % (11.5-17.5); White Blood Count 3.1 K/mm3 (4.8-10.8)
[2021-03-08 07:33] LABS: Anion Gap 14.2 mEq/L (5-15); Blood Urea Nitrogen 53 mg/dl (7-17); Carbon Dioxide 11 mmol/L (22.0-30.0); Chloride 109 mmol/L (98-107); Creatinine Clearance Estimated 16 mL/min (50-200); Estimated Glomerular Filt Rate 18 ml/min (>60); GFR (African American) 22 ML/MIN (>60); Glucose 88 mg/dl (74-100); Potassium 4.2 mmoL/L (3.5-5.1); Sodium 130 mmol/L (136-145)
[2021-03-08 07:37] LABS: Calcium 6.9 mg/dl (8.4-10.2)
--- NOTE | 2021-03-08 09:31 | PC.NURSE ---
Notified Janessa Farris APRN of calcium of 6.9. She did change fluid orders per dec.
--- NOTE | 2021-03-08 11:02 | HMH.ACPN2 ---
Internal Medicine - PN: Subj *Date: 03/08/21 *Time: 09:30 Interval history: pt laying in bed, edema connor lower ext gray draining at bedside Exam Vital signs and Labs for Last 24 Hours: Temp Pulse Resp BP Pulse Ox 98.6 F 89 19 109/52 L 90 L 03/08/21 08:00 03/08/21 08:00 03/08/21 08:00 03/08/21 08:00 03/08/21 08:00 Laboratory Results - last 24 hr 03/08/21 06:45: WBC 3.1 L D, RBC 3.00 L, Hgb 8.1 L, Hct 24.9 L, MCV 82.8, MCH 27.0, MCHC 32.6, RDW 19.5 H, Plt Count 95 L, MPV 7.7, Neut % (Auto) 72.9, Lymph % (Auto) 18.0, [place] % (Auto) 6.4, Eos % (Auto) 2.4, Baso % (Auto) 0.4, Neut # (Auto) 2.3, Lymph # (Auto) 0.6 L, [place] # (Auto) 0.2, Eos # (Auto) 0.1, Baso # (Auto) 0.0 03/08/21 06:45: Sodium 130 L, Potassium 4.2, Chloride 109 H, Carbon Dioxide 11 L, Anion Gap 14.2, BUN 53 H, Creatinine 2.60 H, Estimated Creat Clear 16, Estimated GFR 18 L*, Est GFR ( Amer) 22 L, Glucose 88, Calcium 6.9 L 03/08/21 10:45: Crossmatch (AHG) See Detail I & O for Last 24 hours: Intake & Output 03/05/21 03/06/21 03/07/21 03/08/21 11:59 11:59 11:59 11:59 Intake Total 620 / 620 1111 / 1111 903 / 903 Output Total 120 / 120 400 / 400 Balance 620 / 620 991 / 991 503 / 503 Weight 180 lb 121 lb 6 oz 124 lb 2 oz 126 lb - Constitutional no acute distress, chronically ill appearing - *Routine HEENT Exam Head: Present: normocephalic Eye: Present: PERRL ENT: Present: mucous membranes moist - *Routine Neck Exam Present: supple. Absent: lymphadenopathy - *Routine Respiratory Exam Present: CTA bilaterally - *Routine Cardiovascular Exam Present: RRR, murmur - *Routine Abdominal Exam Present: soft, normoactive bowel sounds. Absent: tenderness - *Routine Exam Comments: gray - *Routine Extremities Exam Present: edema. Absent: cyanosis, clubbing - *Routine Skin Exam Present: warm. Absent: rash - *Routine Neurological Exam Present: alert - Routine Psychiatric Exam Present: normal affect Assessment and Plan (1) Thrombocytopenia Status: Acute Category: Medical Code(s): D69.6 - Thrombocytopenia, unspecified (2) YURI (acute kidney injury) Status: Acute Category: Medical Code(s): N17.9 - Acute kidney failure, unspecified (3) Acute urinary retention Status: Acute Category: Medical Code(s): R33.8 - Other retention of urine (4) Hematuria Status: Acute Qualifiers: Hematuria type: gross Qualified Code(s): R31.0 - Gross hematuria Category: Medical Code(s): R31.9 - Hematuria, unspecified (5) Anemia Status: Chronic Qualifiers: Anemia type: other cause Other causes of anemia: other cause, not classified Qualified Code(s): D64.89 - Other specified anemias Category: Medical Code(s): D64.9 - Anemia, unspecified (6) UTI (urinary tract infection) Status: Acute Qualifiers: Urinary tract infection type: site unspecified Hematuria presence: with hematuria Qualified Code(s): N39.0 - Urinary tract infection, site not specified; R31.9 - Hematuria, unspecified Category: Medical Code(s): N39.0 - Urinary tract infection, site not specified (7) Pertussis Status: Acute Category: Medical Code(s): A37.90 - Whooping cough, unspecified species without pneumonia (8) Hypothyroidism (acquired) Status: Acute Category: Medical Code(s): E03.9 - Hypothyroidism, unspecified (9) Bladder mass Status: Acute Category: Medical Code(s): N32.89 - Other specified disorders of bladder (10) Proteus mirabilis infection Status: Acute Category: Medical Code(s): A49.8 - Other bacterial infections of unspecified site (11) HOYOS (nonalcoholic steatohepatitis) Status: Acute Category: Medical Code(s): K75.81 - Nonalcoholic steatohepatitis (HOYOS) - Assessment and plan all Dx Assessment and Plan for all problems:: rounded with dr mccloud all orders per dr rgoers
--- NOTE | 2021-03-08 19:48 | PC.NURSE ---
Pt alert and oriented and able to make needs known. Does appear to have episodes of confusion. RR even and unlabored. Placed pt on 02 @ 2 L NC. Called and got order for a x 1 dose of prn norco 5/325 r/t generalized pain and pain in the breast/ RUQ area. CB in reach. Pt did eat cheeseburger and fries for supper. VSS. S1,S2, Lungs cta, and bs x 4 quads. Continues on cbi with no problems and no bleeding. There was an occasion small clot, white/sangious in color. Does have urology consult for tomorrow.
[2021-03-09] VITALS (22 sets, daily range): BP systolic 90–115; BP diastolic 40–68; PULSE 88–110; RESP 15–22; TEMP 36.4–36.7; O2SAT 88–98; BMI 25.1
--- NOTE | 2021-03-09 05:42 | PC.NURSE ---
shift summary pts lung sounds are clear with saats maintained 90% or above on room air. pt is alert but confused.CBI is continuing with no problems output is clear to light yellow in color. 1 unit of blood was transfused during this shift pt tolerated well and there was no issues. pt denies any nausea or vomiting. urology consult scheduled for today.
[2021-03-09 07:32] LABS: Chloride 115 mmol/L (98-107); Potassium 3.5 mmoL/L (3.5-5.1); Sodium 135 mmol/L (136-145)
[2021-03-09 07:37] LABS: Basophils % 0.3 % (0.1-2.0); Eosinophils # 0.1 K/mm3 (0.0-0.4); Eosinophils % 1.1 % (0.1-12.0); Hematocrit 31.2 % (37.0-47.0); Hemoglobin 10.1 g/dL (12.2-16.2); Lymphocytes # 0.7 K/mm3 (0.7-4.5); Lymphocytes % 9.9 % (10-50); Mean Corpuscular HGB Conc 32.3 g/dL (31.8-35.4); Mean Corpuscular Volume 86.5 fl (81-99); Monocytes # 0.3 K/mm3 (0.1-1.0); Neutrophils # 5.8 K/mm3 (1.8-7.8); Neutrophils % 83.6 % (37.0-80.0); Platelet Count 102 K/mm3 (142-424); Red Cell Distribution Width 18.5 % (11.5-17.5); White Blood Count 6.9 K/mm3 (4.8-10.8)
[2021-03-09 07:51] LABS: Anion Gap 14.5 mEq/L (5-15); Blood Urea Nitrogen 49 mg/dl (7-17); Creatinine Clearance Estimated 19 mL/min (50-200); Estimated Glomerular Filt Rate 21 ml/min (>60); GFR (African American) 25 ML/MIN (>60); Glucose 78 mg/dl (74-100)
[2021-03-09 07:55] LABS: Carbon Dioxide 9 mmol/L (22.0-30.0)
[2021-03-09 08:08] LABS: T4 (Thyroxine) 1.4 ug/dl (5.53-11.0)
[2021-03-09 08:22] LABS: Thyroid Stimulating Hormone 2.27 uIU/mL (0.465-4.68)
--- NOTE | 2021-03-09 09:25 | CA_ITS ---
APPROVED REPORT Bilateral Lower Extremity Venous Study for DVT. Intelligence Director: ZENIA/CHAPINCITO Indications Edema, Hematuria, YURI, CHF, Pertussis Vein Imaging CFV (R): compressive, spontaneous, phasic, augmentation FEM (R): compressive, spontaneous, phasic, augmentation POP (R): compressive, spontaneous, phasic, augmentation PTV (R): compressive, spontaneous, phasic, augmentation GSV (R): compressive, spontaneous, phasic, augmentation SSV (R): compressive, spontaneous, phasic, augmentation Peroneals (R):compressive, spontaneous, phasic, augmentation GAS (R): compressive, spontaneous, phasic, augmentation CFV (L): compressive, spontaneous, phasic, augmentation FEM (L): compressive, spontaneous, phasic, augmentation POP (L): compressive, spontaneous, phasic, augmentation DFV (L): compressive, spontaneous, phasic, augmentation PTV (L): compressive, spontaneous, phasic, augmentation GSV (L): compressive, spontaneous, phasic, augmentation SSV (L): compressive, spontaneous, phasic, augmentation Peroneals (L):compressive, spontaneous, phasic, augmentation GAS (L): compressive, spontaneous, phasic, augmentation Findings Color flow duplex demonstrates no evidence of DVT of the following bilateral lower extremity Veins:Common Femoral Vein, Femoral Vein, Popliteal Vein, Posterior Tibial Veins, Peroneal Veins. Negative for DVT. Conclusion Color flow duplex demonstrates no evidence of DVT of the following bilateral lower extremity Veins:Common Femoral Vein, Femoral Vein, Popliteal Vein, Posterior Tibial Veins, Peroneal Veins. Negative for DVT. Electronically signed by : Colt Espinal MD 03/09/2021 17:43:21
--- NOTE | 2021-03-09 09:26 | XR_ITS ---
PROCEDURE: XR CHEST PORTABLE CLINICAL HISTORY: SOA COMPARISON: CR XR CHEST AP from 09/03/2019 CR XR CHEST PORTABLE from 03/06/2021 FINDINGS: Normal heart size. There is mild diffuse bilateral increase in lung opacification consistent with bilateral pneumonia with some sparing in the left upper lobe medially. Left upper lobe nodular opacity previously described is somewhat obscured. Prior kyphoplasty at L1. Degenerative changes left shoulder.. IMPRESSION: Development of bilateral pneumonia. Dictated by: Colt Espinal MD 03/09/2021 10:11 Colt Espinal MD in OV 03/09/2021 10:11
--- NOTE | 2021-03-09 09:46 | SW/DCPLANNER ---
This patient currently resides at [facility]. I spoke with Dina this morning and she stated that patient is [facility] level of care. Patient is not stable for discharge at this time. I will continue to follow up with Dina until medically stable for discharge.
--- NOTE | 2021-03-09 10:20 | HMH.ACPN2 ---
Internal Medicine - PN: Subj *Date: 03/09/21 *Time: 12:41 Interval history: 75-year-old female patient sitting up in bed she reports she is not feeling as good today as she was yesterday, is very vague in describing exactly what is different. Oxygen saturation 95% on 3 L per nasal cannula. Ferguson draining clear yellow urine, CBI was turned off this morning his urine still continues to be yellow and clear. Exam Vital signs and Labs for Last 24 Hours: Temp Pulse Resp BP Pulse Ox 97.9 F 95 H 22 104/45 L 95 03/09/21 07:17 03/09/21 07:17 03/09/21 07:17 03/09/21 07:17 03/09/21 07:17 Laboratory Results - last 24 hr 03/08/21 10:45: Blood Type O Negative, Antibody Screen Negative, Crossmatch (AHG) See Detail 03/08/21 13:00: Blood Type Confirm O Negative 03/09/21 06:57: WBC 6.9 D, RBC 3.60 L, Hgb 10.1 L, Hct 31.2 L, MCV 86.5, MCH 28.0, MCHC 32.3, RDW 18.5 H, Plt Count 102 L, MPV 9.0, Neut % (Auto) 83.6 H, Lymph % (Auto) 9.9 L, [place] % (Auto) 5.0, Eos % (Auto) 1.1, Baso % (Auto) 0.3, Neut # (Auto) 5.8, Lymph # (Auto) 0.7, [place] # (Auto) 0.3, Eos # (Auto) 0.1, Baso # (Auto) 0.0 03/09/21 06:57: Sodium 135 L, Potassium 3.5, Chloride 115 H, Carbon Dioxide 9 L* D, Anion Gap 14.5, BUN 49 H, Creatinine 2.30 H, Estimated Creat Clear 19, Estimated GFR 21 L, Est GFR ( Amer) 25 L, Glucose 78, TSH 2.27, Thyroxine (T4) 1.4 L I & O for Last 24 hours: Intake & Output 03/06/21 03/07/21 03/08/21 03/09/21 23:59 23:59 23:59 23:59 Intake Total 1431 / 1731 1203 / 1203 1170 / 1170 250 / 250 Output Total 120 / 120 400 / 400 85391 / 17927 Balance 1311 / 1611 803 / 803 -8930 / -8930 250 / 250 Weight 121 lb 6 oz 124 lb 2 oz 126 lb 128 lb 3 oz - Constitutional no acute distress, thin, chronically ill appearing - *Routine HEENT Exam Head: Present: normocephalic Eye: Present: EOMI ENT: Present: mucous membranes moist - *Routine Neck Exam Present: trachea midline. Absent: tracheal deviation - *Routine Respiratory Exam Present: CTA bilaterally. Absent: accessory muscle use - *Routine Cardiovascular Exam Present: RRR, murmur - *Routine Abdominal Exam Present: soft, normoactive bowel sounds, distended. Absent: tenderness, rigid - *Routine Extremities Exam Present: edema, full ROM, pulses intact. Absent: cyanosis, clubbing, calf tenderness - *Routine Skin Exam Present: intact, dry, warm. Absent: cyanosis, erythema - *Routine Neurological Exam Present: alert, oriented X3. Absent: motor deficit, pronator drift - Routine Psychiatric Exam Present: normal affect, normal thought process. Absent: auditory hallucinations, visual hallucinations Assessment and Plan (1) Thrombocytopenia Status: Acute Category: Medical Code(s): D69.6 - Thrombocytopenia, unspecified (2) YURI (acute kidney injury) Status: Acute Category: Medical Code(s): N17.9 - Acute kidney failure, unspecified (3) Acute urinary retention Status: Acute Category: Medical Code(s): R33.8 - Other retention of urine (4) Hematuria Status: Acute Qualifiers: Hematuria type: gross Qualified Code(s): R31.0 - Gross hematuria Category: Medical Code(s): R31.9 - Hematuria, unspecified (5) Anemia Status: Chronic Qualifiers: Anemia type: other cause Other causes of anemia: other cause, not classified Qualified Code(s): D64.89 - Other specified anemias Category: Medical Code(s): D64.9 - Anemia, unspecified (6) UTI (urinary tract infection) Status: Acute Qualifiers: Urinary tract infection type: site unspecified Hematuria presence: with hematuria Qualified Code(s): N39.0 - Urinary tract infection, site not specified; R31.9 - Hematuria, unspecified Category: Medical Code(s): N39.0 - Urinary tract infection, site not specified (7) Pertussis Status: Acute Category: Medical Code(s): A37.90 - Whooping cough, unspecified species without pneumonia (8) Hypothyroidism (acquired) Status: Acute
--- NOTE | 2021-03-09 15:34 | HMH.CONS ---
*Admission Date: 03/06/21 *Reason for consult:: Gross hematuria *History of present illness: Patient is a 75-year-old white female admitted 3 days ago with gross hematuria. CT scan revealed a distended bladder and right-sided hydroureteronephrosis as well as left-sided nonobstructing renal stones and high attenuation mass/debris the base of the urinary bladder. She was admitted and placed on continuous bladder irrigation and her urine has cleared nicely and the CBI is currently off. The patient's daughter and son are in the room and she states that the patient is usually very coherent and alert. Patient is crying out a bit during my interview. The daughter states patient had an episode of hematuria last October and was at [facility] but no intervention was performed at that time. Daughter states she had some renal failure at that time as well and her current creatinine is 2.3. Her white count is normal and her urine culture showed greater than 100,000 Proteus which is sensitive to the ceftriaxone that she is on. [facility] History Medical History: Reports:: Gall Bladder Disease, Gastroesophageal Reflux Disease(GERD), Hypertension Denies:: Internal Pacemaker, Seizures *Have you ever received a pneumonia vaccine?: Yes *Have you received a flu vaccine this season?: Yes Other Medical History: Reports: Anemia, Arthritis Laterality Cases: Right: Arthroscopy Shoulder Other Surgeries: Yes: Appendectomy, Cholecystectomy, Colonoscopy, Hysterectomy-Total. No: Pacemaker Amputation: No Fractures: Yes - *Social History Smoking Status: Former smoker Alcohol Intake: never Substance Use Type: denies use *Occupational Status:: retired Household Members: family *Travel in the last 8 weeks: None Family Hx:: Unable to obtain Review of Systems - Review of Systems Review of systems:: pertinent systems reviewed and negative unless documented below - *Neurologic Denies seizure-like activity Meds Home Medications Medication Instructions Recorded Confirmed Type Dicyclomine HCl [Bentyl 10mg 10 mg PO DAILY 03/05/21 03/05/21 History capsule] Donepezil HCl [Aricept 10mg 10 mg PO HS 03/05/21 03/05/21 History tablet] Fluticasone Furoate [Flonase 1 spray NS BID 03/05/21 03/05/21 History Sensimist] Gabapentin [Gabapentin 100mg Cap] 100 mg PO DAILY 03/05/21 03/05/21 History Gabapentin [Gabapentin 100mg Cap] 200 mg PO HS 03/05/21 03/05/21 History Ibuprofen [Ibuprofen 400mg 400 mg PO BID 03/05/21 03/05/21 History Tablet] Levothyroxine Sodium 75 mcg PO DAILY 03/05/21 03/05/21 History [Levothyroxine 75mcg (0.075mg) Tab] Loperamide HCl [Anti-Diarrheal] 2 mg PO BID 03/05/21 03/05/21 History Melatonin 5 mg PO HS 03/05/21 03/05/21 History Rifaximin [Xifaxan 550mg Tablet] 550 mg PO BID 03/05/21 03/05/21 History Sertraline HCl [Zoloft 100mg 200 mg PO DAILY 03/05/21 03/05/21 History tablet] Spironolactone [Aldactone 100mg 100 mg PO DAILY 03/05/21 03/05/21 History Tab] Allergies Allergy/AdvReac Type Severity Reaction Status Date / Time aspirin Allergy Mild Verified 09/03/19 11:53 cephalexin [From Keflex] Allergy Mild sick to Verified 09/03/19 11:53 stomach codeine Allergy Mild Verified 09/03/19 11:53 Penicillins Allergy Mild Verified 09/03/19 11:53 tramadol Allergy Mild Verified 09/03/19 11:53 Exam Vital signs and Labs for Last 24 Hours: Temp Pulse Resp BP Pulse Ox 97.6 F 110 H 20 92/44 L 94 L 03/09/21 14:56 03/09/21 14:56 03/09/21 14:56 03/09/21 14:56 03/09/21 15:08 Laboratory Results - last 24 hr 03/08/21 10:45: Blood Type O Negative, Antibody Screen Negative, Crossmatch (AHG) See Detail 03/09/21 06:57: WBC 6.9 D, RBC 3.60 L, Hgb 10.1 L, Hct 31.2 L, MCV 86.5, MCH 28.0, MCHC 32.3, RDW 18.5 H, Plt Count 102 L, MPV 9.0, Neut % (Auto) 83.6 H, Lymph % (Auto) 9.9 L, [place] % (Auto) 5.0, Eos % (Auto) 1.1, Baso % (Auto) 0.3, Neut # (Auto) 5.8, Lymph # (Auto) 0.7, [place] # (Auto) 0.3, Eos # (Auto) 0.
[2021-03-09 19:26] LABS: ABG Base Excess -17.6 mmol/L (-2.4-2.3); ABG Oxygen Saturation 71 % (90-100); ABG PCO2 30.8 mmhg (35.0-45.0); ABG TCO2 11.9 mmhg (23-27); Allen's Test Y; Oxygen 50 VM %; Source L/R
[2021-03-09 19:27] LABS: ABG PH 7.17 mmol/L (7.35-7.45); ABG PO2 37.6 mmhg (80-100)
--- NOTE | 2021-03-09 19:44 | PC.NURSE ---
1844 - ATTEMPTED TO OBTAIN SAT ON PT, RT @ BEDSIDE, SAT @ BEST 80%. PT PLACED ON VENTURI MASK @ 50% W/ SAT IN LOW 80'S STILL. CONT PULSE OX ON PT. DR. FERRIS @ BEDSIDE, NEW ORDERS OBTAINED (SEE PROVIDER NOTIF) ABG RESULTS CALLED TO DR. FERRIS @ 1937, NEW ORDERS TO PLACE PT ON BIPAP 09/15, OBTAIN ABG 2 HOURS AFTER BEING PLACED ON BIPAP.
[2021-03-10] VITALS (32 sets, daily range): BP systolic 78–128; BP diastolic 00–65; PULSE 90–115; RESP 12–36; TEMP 36.6–37.4; O2SAT 86–100; BMI 26.9; BMI 26.8
[2021-03-10 00:28] LABS: ABG Base Excess -15.6 mmol/L (-2.4-2.3); ABG HCO3 12.4 mmhg (22.0-26.0); ABG Oxygen Saturation 91 % (90-100); ABG PCO2 32.2 mmhg (35.0-45.0); ABG PO2 60.7 mmhg (80-100); ABG TCO2 13.4 mmhg (23-27); Allen's Test Y; Oxygen 50 %; Source L/R
--- NOTE | 2021-03-10 03:12 | PC.NURSE ---
A/O to self, pt has been on bi-pap since 20:00 has tolerated well. At 20:00 B/P was 92/54 manually. gave order for 50ml of albumin and 1 amp of bicab, 1g of calcium carbonate. Pt has been given a total of 1700ml of fluids, pressure has improved to 110s/60s. Pt has 3+ pitting edema in BLE, 2+ pitting edema in BUE. pt has been turned every 2 hours, and heels floated. Ferguson in place draining clear, yellow urine. IV patent, no concerns at this time.
[2021-03-10 07:33] LABS: Allen's Test acceptable; Oxygen 70% %; Vent Rate 14
[2021-03-10 07:36] LABS: ABG PH 7.26 mmol/L (7.35-7.45)
[2021-03-10 07:37] LABS: ABG Base Excess -15.2 mmol/L (-2.4-2.3); ABG HCO3 12.7 mmhg (22.0-26.0); ABG Oxygen Saturation 95 % (90-100); ABG PCO2 32.9 mmhg (35.0-45.0); ABG PO2 78.5 mmhg (80-100); ABG TCO2 13.8 mmhg (23-27)
[2021-03-10 08:14] LABS: Basophils % 0.1 % (0.1-2.0); Eosinophils % 0.4 % (0.1-12.0); Hematocrit 33.6 % (37.0-47.0); Lymphocytes # 0.7 K/mm3 (0.7-4.5); Lymphocytes % 10.8 % (10-50); Mean Corpuscular HGB Conc 32.6 g/dL (31.8-35.4); Mean Corpuscular Hemoglobin 27.6 pg (27.0-31.2); Mean Corpuscular Volume 84.8 fl (81-99); Mean Platelet Volume 8.9 fl (7.4-10.4); Monocytes # 0.2 K/mm3 (0.1-1.0); Monocytes % 3.8 % (1.7-9.3); Neutrophils # 5.5 K/mm3 (1.8-7.8); Neutrophils % 84.8 % (37.0-80.0); Platelet Count 121 K/mm3 (142-424); Red Blood Count 3.97 M/mm3 (4.20-5.40); White Blood Count 6.5 K/mm3 (4.8-10.8)
[2021-03-10 08:21] LABS: Anion Gap 13.4 mEq/L (5-15); Blood Urea Nitrogen 50 mg/dl (7-17); Chloride 116 mmol/L (98-107); Creatinine Clearance Estimated 18 mL/min (50-200); Estimated Glomerular Filt Rate 19 ml/min (>60); GFR (African American) 23 ML/MIN (>60); Glucose 62 mg/dl (74-100); Potassium 3.4 mmoL/L (3.5-5.1); Sodium 136 mmol/L (136-145)
[2021-03-10 08:44] LABS: Calcium 6.5 mg/dl (8.4-10.2); Carbon Dioxide 10 mmol/L (22.0-30.0)
--- NOTE | 2021-03-10 09:06 | HMH.ACPN2 ---
Internal Medicine - PN: Subj *Date: 03/10/21 *Time: 20:43 Interval history: 75 YOF lying in bed with BiPAP intact, settings 05/25/1972. She is lethargic shakes her head no when asked if she is in pain. We will consult pulmonology Exam Vital signs and Labs for Last 24 Hours: Temp Pulse Resp BP Pulse Ox 99.3 F 103 H 16 96/65 L 96 03/10/21 08:00 03/10/21 08:00 03/10/21 08:00 03/10/21 08:00 03/10/21 08:00 Laboratory Results - last 24 hr 03/09/21 06:57: Calcium 6.0 L D 03/09/21 19:23: Specimen Source L/r, O2 % 50 vm, ABG pH 7.17 L*, ABG pCO2 30.8 L, ABG pO2 37.6 L, ABG HCO3 11.0 L, ABG Total CO2 11.9 L, ABG O2 Saturation 71 L*, ABG Base Excess -17.6 L, Colt Test Y 03/10/21 00:17: Specimen Source L/r, O2 % 50, ABG pH 7.20 L*, ABG pCO2 32.2 L, ABG pO2 60.7 L, ABG HCO3 12.4 L, ABG Total CO2 13.4 L, ABG O2 Saturation 91, ABG Base Excess -15.6 L, Colt Test Y 03/10/21 06:00: Specimen Source l radial, O2 % 70%, ABG pH 7.26 L, ABG pCO2 32.9 L, ABG pO2 78.5 L, ABG HCO3 12.7 L, ABG Total CO2 13.8 L, ABG O2 Saturation 95, ABG Base Excess -15.2 L, Colt Test acceptable, Vent Rate 14, Tidal Volume 12/8 03/10/21 07:48: WBC 6.5, RBC 3.97 L, Hgb 11.0 L, Hct 33.6 L, MCV 84.8, MCH 27.6, MCHC 32.6, RDW 19.0 H, Plt Count 121 L, MPV 8.9, Neut % (Auto) 84.8 H, Lymph % (Auto) 10.8, [place] % (Auto) 3.8, Eos % (Auto) 0.4, Baso % (Auto) 0.1, Neut # (Auto) 5.5, Lymph # (Auto) 0.7, [place] # (Auto) 0.2, Eos # (Auto) 0.0, Baso # (Auto) 0.0 03/10/21 07:48: Sodium 136, Potassium 3.4 L, Chloride 116 H, Carbon Dioxide 10 L D, Anion Gap 13.4, BUN 50 H, Creatinine 2.50 H, Estimated Creat Clear 18, Estimated GFR 19 L*, Est GFR ( Amer) 23 L, Glucose 62 L, Calcium 6.5 L I & O for Last 24 hours: Intake & Output 03/07/21 03/08/21 03/09/21 03/10/21 23:59 23:59 23:59 23:59 Intake Total 1203 / 1203 1170 / 1170 490 / 490 2111 / 2111 Output Total 400 / 400 92663 / 08397 100 / 100 200 / 200 Balance 803 / 803 -8930 / -8930 390 / 390 1911 Weight 124 lb 2 oz 126 lb 128 lb 3 oz 137 lb 1 oz - Constitutional mild distress, chronically ill appearing - *Routine HEENT Exam Head: Present: normocephalic Eye: Present: EOMI ENT: Present: mucous membranes dry - *Routine Neck Exam Present: trachea midline. Absent: tracheal deviation - *Routine Respiratory Exam Present: rales. Absent: accessory muscle use - *Routine Cardiovascular Exam Present: RRR - *Routine Abdominal Exam Present: soft, normoactive bowel sounds. Absent: firm - *Routine Extremities Exam Present: edema, pulses intact. Absent: cyanosis - *Routine Skin Exam Present: wounds Comments: Bruised L Toes Scabbed area R outer foot - *Routine Neurological Exam Present: altered mental status. Absent: oriented X3 - Routine Psychiatric Exam Present: unable to assess Assessment and Plan (1) Thrombocytopenia Status: Acute Category: Medical Code(s): D69.6 - Thrombocytopenia, unspecified (2) YURI (acute kidney injury) Status: Acute Category: Medical Code(s): N17.9 - Acute kidney failure, unspecified (3) Acute urinary retention Status: Acute Category: Medical Code(s): R33.8 - Other retention of urine (4) Hematuria Status: Acute Qualifiers: Hematuria type: gross Qualified Code(s): R31.0 - Gross hematuria Category: Medical Code(s): R31.9 - Hematuria, unspecified (5) Anemia Status: Chronic Qualifiers: Anemia type: other cause Other causes of anemia: other cause, not classified Qualified Code(s): D64.89 - Other specified anemias Category: Medical Code(s): D64.9 - Anemia, unspecified (6) UTI (urinary tract infection) Status: Acute Qualifiers: Urinary tract infection type: site unspecified Hematuria presence: with hematuria Qualified Code(s): N39.0 - Urinary tract infection, site not specified; R31.9 - Hematuria, unspecified Category: Medical Code(s): N39.0 - Urinary tract infection, site not specified
--- NOTE | 2021-03-10 09:35 | PC.NURSE ---
Dr. Lewis @ bedside, lowered FIO2 from 70% to 55%.
--- NOTE | 2021-03-10 09:43 | PC.NURSE ---
Pt's daughter updated on plan of care via phone @ this time
--- NOTE | 2021-03-10 09:43 | PC.NURSE ---
Spoke w/ charge nurse, Leo Niño RN about bed assignment, at this time there are no step-down beds available (currently waiting on pt to be dc'd to clean room and move pt)
--- NOTE | 2021-03-10 11:55 | HMH.ACPN ---
Internal Medicine - PN: Subj *Date: 03/10/21 *Time: 11:55 Exam Vital signs and Labs for Last 24 Hours: Temp Pulse Resp BP Pulse Ox 99.3 F 102 H 20 98/53 L 90 L 03/10/21 08:00 03/10/21 11:00 03/10/21 11:00 03/10/21 11:00 03/10/21 11:00 Laboratory Results - last 24 hr 03/09/21 06:57: Calcium 6.0 L D 03/09/21 19:23: Specimen Source L/r, O2 % 50 vm, ABG pH 7.17 L*, ABG pCO2 30.8 L, ABG pO2 37.6 L, ABG HCO3 11.0 L, ABG Total CO2 11.9 L, ABG O2 Saturation 71 L*, ABG Base Excess -17.6 L, Colt Test Y 03/10/21 00:17: Specimen Source L/r, O2 % 50, ABG pH 7.20 L*, ABG pCO2 32.2 L, ABG pO2 60.7 L, ABG HCO3 12.4 L, ABG Total CO2 13.4 L, ABG O2 Saturation 91, ABG Base Excess -15.6 L, Colt Test Y 03/10/21 06:00: Specimen Source l radial, O2 % 70%, ABG pH 7.26 L, ABG pCO2 32.9 L, ABG pO2 78.5 L, ABG HCO3 12.7 L, ABG Total CO2 13.8 L, ABG O2 Saturation 95, ABG Base Excess -15.2 L, Colt Test acceptable, Vent Rate 14, Tidal Volume 12/8 03/10/21 07:48: WBC 6.5, RBC 3.97 L, Hgb 11.0 L, Hct 33.6 L, MCV 84.8, MCH 27.6, MCHC 32.6, RDW 19.0 H, Plt Count 121 L, MPV 8.9, Neut % (Auto) 84.8 H, Lymph % (Auto) 10.8, [place] % (Auto) 3.8, Eos % (Auto) 0.4, Baso % (Auto) 0.1, Neut # (Auto) 5.5, Lymph # (Auto) 0.7, [place] # (Auto) 0.2, Eos # (Auto) 0.0, Baso # (Auto) 0.0 03/10/21 07:48: Sodium 136, Potassium 3.4 L, Chloride 116 H, Carbon Dioxide 10 L D, Anion Gap 13.4, BUN 50 H, Creatinine 2.50 H, Estimated Creat Clear 18, Estimated GFR 19 L*, Est GFR ( Amer) 23 L, Glucose 62 L, Calcium 6.5 L I & O for Last 24 hours: Intake & Output 03/07/21 03/08/21 03/09/21 03/10/21 23:59 23:59 23:59 23:59 Intake Total 1203 / 1203 1170 / 1170 490 / 490 2111 / 2111 Output Total 400 / 400 34964 / 18328 100 / 100 200 / 200 Balance 803 / 803 -8930 / -8930 390 / 390 1911 / 1911 Weight 56.302 kg 57.153 kg 58.145 kg 62.171 kg Assessment and Plan (1) Thrombocytopenia Status: Acute Category: Medical Code(s): D69.6 - Thrombocytopenia, unspecified (2) YURI (acute kidney injury) Status: Acute Category: Medical Code(s): N17.9 - Acute kidney failure, unspecified (3) Acute urinary retention Status: Acute Category: Medical Code(s): R33.8 - Other retention of urine (4) Hematuria Status: Acute Qualifiers: Hematuria type: gross Qualified Code(s): R31.0 - Gross hematuria Category: Medical Code(s): R31.9 - Hematuria, unspecified (5) Anemia Status: Chronic Qualifiers: Anemia type: other cause Other causes of anemia: other cause, not classified Qualified Code(s): D64.89 - Other specified anemias Category: Medical Code(s): D64.9 - Anemia, unspecified (6) UTI (urinary tract infection) Status: Acute Qualifiers: Urinary tract infection type: site unspecified Hematuria presence: with hematuria Qualified Code(s): N39.0 - Urinary tract infection, site not specified; R31.9 - Hematuria, unspecified Category: Medical Code(s): N39.0 - Urinary tract infection, site not specified (7) Pertussis Status: Acute Category: Medical Code(s): A37.90 - Whooping cough, unspecified species without pneumonia (8) Hypothyroidism (acquired) Status: Acute Category: Medical Code(s): E03.9 - Hypothyroidism, unspecified (9) Bladder mass Status: Acute Category: Medical Code(s): N32.89 - Other specified disorders of bladder (10) Proteus mirabilis infection Status: Acute Category: Medical Code(s): A49.8 - Other bacterial infections of unspecified site (11) HOYOS (nonalcoholic steatohepatitis) Status: Acute Category: Medical Code(s): K75.81 - Nonalcoholic steatohepatitis (HOYOS) The patient's infection will respond to the chosen ABx?: Yes Is the patient receiving the right drug, dose, and route?: Yes Could a more targeted ABx be ordered?: No
--- NOTE | 2021-03-10 11:55 | HMH.PULMCON ---
*Admission Date: 03/06/21 *History of present illness: Patient BiPAP altered, intermittently responding to commands. Much of history is obtained from chart review. Ms. Zarco is a 75-year-old woman presented to emergency department from shelter concerning for vaginal bleeding however she had a hysterectomy neurology was called for further management of hematuria improved since her admission per patient also admitted with worsening renal function and worsening volume overload status and her respiratory status gradually worsened needing nasal cannula and BiPAP to maintain her oxygen saturation pulmonary was called for further management. She is also being managed for Proteus mirabilis UTI and has been on ceftriaxone since admission. [facility] History Medical History: Reports:: Gall Bladder Disease, Gastroesophageal Reflux Disease(GERD), Hypertension Denies:: Internal Pacemaker, Seizures *Have you ever received a pneumonia vaccine?: Yes *Have you received a flu vaccine this season?: Yes Other Medical History: Reports: Anemia, Arthritis Laterality Cases: Right: Arthroscopy Shoulder Other Surgeries: Yes: Appendectomy, Cholecystectomy, Colonoscopy, Hysterectomy-Total. No: Pacemaker Amputation: No Fractures: Yes - *Social History Smoking Status: Former smoker Alcohol Intake: never Substance Use Type: denies use *Occupational Status:: retired Household Members: family *Travel in the last 8 weeks: None Family Hx:: Unable to obtain ROS - Review of Systems Review of systems:: unable to obtain Patient on BiPAP altered mentation, intermittent responding to commands Meds Home Medications Medication Instructions Recorded Confirmed Type Dicyclomine HCl [Bentyl 10mg 10 mg PO DAILY 03/05/21 03/05/21 History capsule] Donepezil HCl [Aricept 10mg 10 mg PO HS 03/05/21 03/05/21 History tablet] Fluticasone Furoate [Flonase 1 spray NS BID 03/05/21 03/05/21 History Sensimist] Gabapentin [Gabapentin 100mg Cap] 100 mg PO DAILY 03/05/21 03/05/21 History Gabapentin [Gabapentin 100mg Cap] 200 mg PO HS 03/05/21 03/05/21 History Ibuprofen [Ibuprofen 400mg 400 mg PO BID 03/05/21 03/05/21 History Tablet] Levothyroxine Sodium 75 mcg PO DAILY 03/05/21 03/05/21 History [Levothyroxine 75mcg (0.075mg) Tab] Loperamide HCl [Anti-Diarrheal] 2 mg PO BID 03/05/21 03/05/21 History Melatonin 5 mg PO HS 03/05/21 03/05/21 History Rifaximin [Xifaxan 550mg Tablet] 550 mg PO BID 03/05/21 03/05/21 History Sertraline HCl [Zoloft 100mg 200 mg PO DAILY 03/05/21 03/05/21 History tablet] Spironolactone [Aldactone 100mg 100 mg PO DAILY 03/05/21 03/05/21 History Tab] Allergies Allergy/AdvReac Type Severity Reaction Status Date / Time aspirin Allergy Mild Verified 09/03/19 11:53 cephalexin [From Keflex] Allergy Mild sick to Verified 09/03/19 11:53 stomach codeine Allergy Mild Verified 09/03/19 11:53 Penicillins Allergy Mild Verified 09/03/19 11:53 tramadol Allergy Mild Verified 09/03/19 11:53 Exam - Constitutional Constitutional:: Present: lethargic. Absent: comfortable - HENMT Exam HENMT: Present: normocephalic, atraumatic - Eye Exam Eyes:: Present: normal appearance both eyes and related structures - Respiratory Exam Respiratory:: Present: respiratory distress, crackles. Absent: able to speak in complete sentences - GI Exam GI:: Present: soft - Skin Exam Skin: Present: no rash - Neurological Exam Neurological: Present: alert. Absent: awake - Extremities Exam Extremities: Present: no cyanosis, no clubbing, edema - Psychiatric Exam Psychiatric: Present: normal affect Internal Medicine - CN: Reslt - Labs CBC & Chem 7: 03/10/21 07:48 03/10/21 07:48 Labs: Short CBC 03/10/21 Range/Units 07:48 WBC 6.5 (4.8-10.8) K/mm3 Hgb 11.0 L (12.2-16.2) g/dL Hct 33.6 L (37.0-47.0) % Plt Count 121 L (142-424) K/mm3 [facility] 03/09/21 03/10/21 06:57 07:48 Sodium 136 Potas
--- NOTE | 2021-03-10 12:01 | XR_ITS ---
PROCEDURE: XR CHEST PORTABLE CLINICAL HISTORY: resp failure COMPARISON: CR XR CHEST AP from 09/03/2019 CR XR CHEST PORTABLE from 03/06/2021 CR XR CHEST PORTABLE from 03/09/2021 FINDINGS: Normal heart size. There is diffuse bilateral pulmonary opacification. This has a somewhat interstitial pattern or reticular nodular pattern and is similar when compared to 03/09/2021. There is a small left pleural effusion. No acute bony abnormalities. IMPRESSION: Overall no significant change in the mild diffuse reticular nodular consolidation suggesting bilateral pneumonia with small left effusion Dictated by: Colt Espinal MD 03/10/2021 12:44 Colt Espinal MD in OV 03/10/2021 12:44
--- NOTE | 2021-03-10 12:50 | CA_ITS ---
APPROVED REPORT EXAM: Comprehensive 2D, Doppler, and color-flow Echocardiogram Asphalt Layer: CHRISSY Cruz, RVS Ht: 4 ft 11 in Wt: 137lbs BSA: 1.57 BP: 103/54 mmHg Indications: HTN, SOB, Pneumonia, ex smoker, pedal edema, Renal failure Murmur, BiPap Echo Enhancing Agent Comments: Technically difficult, Poor acoustics throughout, patient supine on biPap 2D Dimensions IVSd 0.76 cm LVEF (Visual) 56.40 % PWd 0.86 cm LV Volume 57.60 mL LVDd 3.95 cm LA Volume 28.90 mL LVDs 2.80 cm LA Volume Index 18.40 mL/m2 (M/F) 16-34 Aortic Root 2.53 cm Left Atrium 3.45 cm LVOT 1.69 cm (M/F) 1.5-2.5 M-Mode Dimensions LA Diam 3.59 cm (1.9-4.0) Ao Diam 2.83 cm (2.0-3.7) LV Diastology E Decel Time 300.00 (160-240 msec) E/A Ratio 0.59 MED E' 9.90 (< 7 cm/sec) MED A' 13.30 cm/s E'/MED E' Ratio 6.27 (>14) LAT E' 14.10 (<10 cm/sec) LAT A' 14.40 cm/s E/LAT E' Ratio 4.40 (>14) Aortic Valve LVOT Max 153.00 (70-110 cm/s) LVOT VTI 27.74 cm AoV Peak Tera. 217.00 (50-130 cm/s) AO Peak GR. 18.90 mmHg AO Mean GR. 8.40 (<5 mmHg) AO VTI 31.50 (18-25 cm) KARY (VTI) 1.98 (2.5-4.5 cm2) Mitral Valve MV E Max Tera. 62.00 (40-130 cm/s) MV A Velocity 106.00 (40-130 cm/s) E/A Ratio 0.59 MV Decel. Time 300.00 (160-240 ms) MV PHT 88.00 ms Pulmonary Valve PV Peak Velocity 77.00 (50-150 cm/s) Tricuspid Valve TR P. Velocity 309.00 cm/s RAP Estimate 10.00 mmHg RVSP 48.10 mmHg Left Ventricle Left atrium is mildly enlarged, left ventricle is normal size, mild concentric left ventricular hypertrophy, visually estimated ejection fraction 55% with no regional wall motion abnormality, grade 1 diastolic dysfunction seen without tissue Doppler evidence of raise left atrial pressure. Right Ventricle Right atrium and right ventricle moderately enlarged with mild reduced contractility of the right ventricle. Aortic Valve Aortic valve is minimally thickened and fibrosed. There is no aortic stenosis or aortic insufficiency. Mitral Valve Mitral valve is minimally thickened, there is mild mitral regurgitation. Tricuspid Valve Tricuspid valve grossly normal, there is mild tricuspid regurgitation, calculated right ventricular systolic pressure is 48 mmHg. Pulmonic Valve Pulmonic valve is poorly visualized. Great Vessels Aortic root is normal size. Pericardium No significant pericardial effusion noted. Conclusion 1. Biatrial enlargement, normal left ventricular size, mild concentric left ventricular hypertrophy, visually estimated ejection fraction 55% with no regional wall motion abnormality, grade 1 diastolic dysfunction seen without tissue Doppler evidence of raise left atrial pressure. 2. Moderately enlarged right ventricle with mild reduced contractility. 3. Mild mitral and tricuspid regurgitation, calculated right ventricular systolic pressure is 48 mmHg. 4. No significant pericardial effusion noted. Electronically signed by : Krishan Turner, 03/11/2021 15:25:29
--- NOTE | 2021-03-10 12:58 | ECG_ITS ---
APPROVED REPORT Exam: Resting ECG HR:100 bpm ECG Measurements Heart Rate 100 AXES MD 184 P 68 QRSd 74 QRS -26 QT 548 T 269 QTc 706 Conclusion Undetermined rhythm Low voltage QRS Inferior infarct, age undetermined Possible Anterolateral infarct, age undetermined Prolonged QT Abnormal ECG Electronically signed by : Michael Ratliff, 03/12/2021 10:27:03
[2021-03-10 13:03] LABS: Glucose,Random 96 mg/dL (74-100)
--- NOTE | 2021-03-10 13:11 | HMH.CNCARD ---
History of Present Illness Consult date: 03/10/21 Requesting physician: Hector Interiano Consult reason: congestive heart failure Chief complaint: dyspnea History of present illness: 75-year-old female admitted to [facility] on 03/02/2021 for abdominal pain and hematuria. Since patient's admission to the facility, patient's respiratory status has declined along with her mental status. Cardiology was consulted due to overload volume status and airspace disease on chest x-ray. Patient is currently on BiPAP at 70% in which her O2 sat remains in the 90s. Per ABGs, patient is noted to have metabolic acidosis. Patient is currently nonverbal. Patient is unable to answer any questions. Patient is noted with third spacing the lower extremities. Venous Doppler was performed. This was negative for DVT. Pulmonology also has been consulted. Patient is currently being treated for Proteius Mirabilis with antibiotics (per PCP). Patient does have history of moderate to severe single-vessel coronary artery disease, hyperdynamic ventricular consistent with diastolic dysfunction hypertensive heart disease and moderate pulmonary hypertension. Patient does have moderate to severe left-sided diastolic dysfunction resulting in biventricular dysfunction (2019). Last echocardiogram (2018) revealed EF 55% with no regional wall abnormality, grade 1 diastolic dysfunction with mild MR and TR noted. EKG was obtained which revealed sinus rhythm with prolonged QT abnormal EKG with a heart rate of 100 bpm. Blood pressure is stable at this time. Lower extremities noted with 2+ pedal edema. Labs revealed creatinine 2.50 with a potassium of 3.4. Patient is a full code. Patient is a resident of local nursing facility. Echo (2018)Conclusion 1. Mildly enlarged left atrium, normal left ventricular size, mild concentric left ventricular hypertrophy, visually estimated ejection fraction 55% with no regional wall motion abnormality, grade 1 diastolic dysfunction seen without tissue Doppler evidence of raise left atrial pressure. 2. Mildly enlarged right ventricle with normal contractility. 3. Mild mitral and tricuspid regurgitation. 4. No significant pericardial effusion noted. RHC/LHC (11/2018)ANGIOGRAPHIC RESULTS The left main artery Normal The left anterior descending artery Has proximal and mid vessel 10 to 20% [id number] stenoses The circumflex artery Is nondominant and has 10 to 20% [id number] stenoses The right coronary artery Is a large dominant vessel and has proximal and mid vessel sequential 60 to 70% stenoses. Distally the vessel is tortuous The HYDE ventriculogram reveals Hyperdynamic 75% The left ventricular end-diastolic pressure 25 to 30 mmHg Right atrial pressure 10 mmHg Pulmonary artery pressure 40/25 mmHg Pulmonary artery occlusion pressure 25 mmHg Pulmonary artery saturation 78% Right atrial saturations 81% IMPRESSION Moderate to severe single-vessel coronary artery disease Hyperdynamic ventricle consistent with diastolic dysfunction hypertensive heart disease Moderate pulmonary hypertension Moderate to severe left-sided diastolic dysfunction resulting in biventricular dysfunction PLAN 1. Patient is not on any anti-anginal medications and requires such prior to revascularization 2. Treat hypertensive heart disease. Start patient on diltiazem and/or beta-blockers 3. Low-dose diuretics to reduce pulmonary hypertension and left ventricular elevated pressures 4. Standard therapy for ischemic heart disease Discussed plan of care with Dr. Shay Day was at bedside. Orders were obtained from Dr. Day. 1 amp of bicarb given due to metabolic acidosis. Obtain echocardiogram to assess LV function and valve status. Pending the results of the echocardiogram, medication and treatment therapies may be recommended. Thank you for allowing cardiology to participate in the care of this patient. [facility]
--- NOTE | 2021-03-10 13:28 | PC.NURSE ---
Dr. Lewis @ [facility]. O2 weaned to 50% via bipap
--- NOTE | 2021-03-10 14:20 | PC.NURSE ---
carol Borges BOTTOMING MACHINE OPERATOR regarding hypotension SBP 70s
--- NOTE | 2021-03-10 14:27 | PC.NURSE ---
received call from Tyra Borges APRN with new orders: 500mL NS bolus now and to start Levophed gtt if hypotension persists. Orders faxed to pharmacy
--- NOTE | 2021-03-10 15:30 | PC.NURSE ---
Levo gtt started @ 5mcg/min. Tyra Borges APRN updated
--- NOTE | 2021-03-10 15:45 | PC.NURSE ---
BP 91/33 (52). Levo gtt increased to 7mcg/min
--- NOTE | 2021-03-10 16:30 | PC.NURSE ---
BP 86/35 (52). Levo gtt increased to 10mcg/min
[2021-03-10 16:52] LABS: ABG HCO3 13.6 mmhg (22.0-26.0); ABG Oxygen Saturation 68 % (90-100); ABG PCO2 38.7 mmhg (35.0-45.0); ABG TCO2 14.8 mmhg (23-27)
[2021-03-10 16:57] LABS: Allen's Test Acceptable; Oxygen 80% %; Pressure Support 4
[2021-03-10 16:58] LABS: Source Left Brachial
[2021-03-10 16:59] LABS: ABG PH 7.16 mmol/L (7.35-7.45); ABG PO2 35.4 mmhg (80-100)
[2021-03-10 17:00] LABS: Lactate Arterial 2.6 mmol/L (0.4-2.0)
--- NOTE | 2021-03-10 17:14 | PC.NURSE ---
spoke to Dr. Lewis, who ordered to give 1 amp Bicarb now and then to put 3 amps of Bicarb into 1L NS and run over 25mL/hr as a cont gtt. Orders faxed to [facility]
--- NOTE | 2021-03-10 17:29 | PC.NURSE ---
[facility] regarding 3 amps of Bicarb in 1L NS to run @ 25mL/hr. He verbalized that order is ok.
--- NOTE | 2021-03-10 17:31 | PC.NURSE ---
received call from Dr. Lweis reporting that he spoke to Dr. Interiano and the plan is for pt to be transferred to a facility with a higher level of care. Daughter and son @ [facility] and wishes for pt to remain a FULL CODE.
--- NOTE | 2021-03-10 18:30 | PC.NURSE ---
BP 84/31. Levo gtt increasd to 15mcg/min
--- NOTE | 2021-03-10 18:45 | PC.NURSE ---
BP 84/23 (43). Levo gtt increased to 20mcg/min
--- NOTE | 2021-03-10 19:03 | PC.NURSE ---
BP 85/41 (55). Levo gtt increased to 30mcg/min
--- NOTE | 2021-03-10 19:08 | PC.NURSE ---
spoke with dr lester from was placed on waiting list no beds available spoke with [facility] no beds placed on waiting list spoke with [facility] waiting for return call
--- NOTE | 2021-03-10 19:38 | HMH.DCSUM ---
General - General Admission date:: 03/05/21 Discharge date: 03/10/21 HPI HPI: this pt was sent from [facility] with blood in urine-75yo F presents to the emergency department from her shelter with concern for vaginal bleeding. Patient reports she has abdominal pain has been ongoing for several days. She denies any fever, nausea/vomiting/diarrhea. She denies feeling lightheaded, having chest pain, having shortness of breath. Patient states she is uncertain where the blood is coming from. She does report having a total hysterectomy in the past.yo F evaluated with concern for vaginal bleeding. After receiving history from the patient that she had a hysterectomy, vaginal bleeding seems less likely. Routine laboratory studies are collected and plan for CT of the abdomen and pelvis with IV contrast. Sadly the patient's creatinine is 2.3. This is a significant increase from previous evaluation and therefore she cannot have IV contrast. A plain study is collected and demonstrates mass versus significant debrides of a bladder along with a severely distended bladder. Patient attempted to void within the last hour and bladder scan at this time shows 595 cc of urine. Significant blood was appreciated on physical exam and with initial catheter insertion. Therefore, a three-way Ferguson was placed for CBI. Patient has had significant hematuria. Several clots have been flushed. Patient's hemoglobin and hematocrit are unremarkable however. UA is slightly concerning for urinary tract infection. We will start the patient on antibiotics at this time. Patient will need to be admitted for further monitoring of her YURI and hematuria. Dr. Interiano is consulted for admission. Discussed all results and findings with the family at bedside. I did mention concern for possible cancer given bladder outlet obstruction, hematuria. Patient was discussed with Dr. Interiano. Tentative plan was to discontinue CBI and monitor patient's Ferguson output. If stable, would discharge to the shelter where she could continue receiving IV fluids to improve her YURI over the weekend. Sadly, the patient as clotted off her Ferguson catheter and is complaining of abdominal pain and distention. Hematuria has worsened with hand irrigation. The patient will need to be admitted for continuous bladder irrigation. pt with persistent bleeding and will need to be admitted Hospital Course Hospital Course: Laboratory Tests 03/05/21 03/05/21 03/05/21 11:15 11:15 11:15 WBC 6.2 RBC 3.88 L Hgb 10.2 L Hct 32.7 L MCV 84.3 MCH 26.3 L MCHC 31.2 L RDW 18.7 H Plt Count 131 L MPV 8.8 Neut % (Auto) 66.1 Lymph % (Auto) 24.4 [place] % (Auto) 5.0 Eos % (Auto) 4.0 Baso % (Auto) 0.6 Neut # (Auto) 4.1 Lymph # (Auto) 1.5 [place] # (Auto) 0.3 Eos # (Auto) 0.3 Baso # (Auto) 0.0 PT INR Specimen Source O2 % ABG pH ABG pCO2 ABG pO2 ABG HCO3 ABG Total CO2 ABG O2 Saturation ABG Base Excess Colt Test ABG Lactate Vent Rate Tidal Volume Sodium 133 L Potassium 4.1 Chloride 110 H Carbon Dioxide 15 L Anion Gap 12.1 BUN 49 H Creatinine 2.30 H Estimated Creat Clear 26 Estimated GFR 21 L Est GFR ( Amer) 25 L Glucose 98 Random Glucose Calcium 7.8 L Total Bilirubin Direct Bilirubin Conjugated Bilirubin Indirect Bilirubin Unconjugated Bilirubin AST ALT Alkaline Phosphatase NT-Pro-B Natriuret Pep 967 H Total Protein Albumin TSH Thyroxine (T4) Urine Color Urine Appearance Urine pH Ur Specific [place] Urine Protein Urine Glucose (UA) Urine Ketones Urine Blood Urine Nitrate Urine Bilirubin Urine Urobilinogen Ur Leukocyte Esterase Urine RBC Urine WBC Ur Squamous Epith Cells Urine Bacteria Chlamy pneumoniae PCR Adenovirus (PCR) B. pertussis
[2021-03-10 22:57] LABS: ABG HCO3 14.2 mmhg (22.0-26.0); ABG Oxygen Saturation 96 % (90-100); ABG PCO2 32.9 mmhg (35.0-45.0); ABG PH 7.25 mmol/L (7.35-7.45); ABG PO2 81.8 mmhg (80-100); ABG TCO2 15.2 mmhg (23-27)
[2021-03-10 23:03] LABS: ABG Base Excess -13.5 mmol/L (-2.4-2.3); ABG HCO3 13.4 mmhg (22.0-26.0); ABG Oxygen Saturation 97 % (90-100); ABG PCO2 30.3 mmhg (35.0-45.0); ABG PH 7.27 mmol/L (7.35-7.45); ABG PO2 91.5 mmhg (80-100); ABG TCO2 14.4 mmhg (23-27)
[2021-03-10 23:04] LABS: Allen's Test Non Applicable; Oxygen 80 %; Pressure Support 4; Source Right Brachial
[2021-03-11] VITALS (31 sets, daily range): BP systolic 34–154; BP diastolic 10–65; PULSE 92–144; RESP 0–23; TEMP 36.4–36.6; O2SAT 92–100; BMI 27.0
--- NOTE | 2021-03-11 01:17 | PC.NURSE ---
shift summary: received patient from offgoing shift. patient on maximum dose of levophed (30 mcq/min), blood pressure remains 80s-90s systolic per automatic cuff, 92/52 per manual cuff. daughter at bedside. patient awake and moaning, threat monitoring analyst shows st. 3+ anasarca present with tissues weeping. 2029 dr. flannery paged due to remaining low blood pressure, order received and carried out. 1949 [facility] [employer] [facility] working on getting [facility]. 2017 received notification to call report to [facility], spoke with daughter at bedside. daughter stated that she did not want her transferred there. gatehouse attendant notified. daughter stated that she would rather wait for another facility. this rn informed daughter that patient may code and by waiting for another facility to accept. daughter voiced understanding and continued to want to wait for another facility. gatehouse attendant checked waiting list status with and [facility]. patient is on waiting list at both facilities. dr. sweet will accept patient at but no bed available at this time. patient blood pressure remains low, dr. flannery notified of blood pressure, pain and iv access. new orders received. dr. davis paged, informed patient of patient status new orders received and carried out.. abg results called to dr. davis and new orders received. dr. rogers notiifed in the emergency department as well, no new orders received. patient has current up to this time received 1500 ml fluid bolus, 1 amp of bicarb and tylenol suppository. patient has 3-4+ anasarca, with tissues weeping. left upper extremity us guided iv site more swollen. red and cool to touch. iv disconnected and placed at other iv site. currently patient whole left arm +4 edema and weeping, blisters have formed to left upper extremity. bruising to left wrist.
--- NOTE | 2021-03-11 02:40 | PC.NURSE ---
new iv started in right hand, 22 guage. levophed drip and bicarb drip moved to right hand. blood pressure improved significantly.
--- NOTE | 2021-03-11 03:08 | PC.NURSE ---
patient has been moaning throughout shift, have been unable to give pain medication or ativan due to low blood pressure. blood pressure has improved at current time. ativan. 0.5 mg ivp give. patietn resting with eyes closed now.
--- NOTE | 2021-03-11 04:44 | PC.NURSE ---
0200 fio2 decreased to 70 % fio2, levophed drip titrated drip decreased to 25 mcwq/min 0215 levophed drip decreased to 20 mcq/min 0315 levophed drip decreased to 15 mcq/min
--- NOTE | 2021-03-11 05:47 | PC.NURSE ---
0500 patient has finally stopped moaning and is resting, blood pressure dropping again, levophed increased back to 20 mcq/min. 0530 blood pressure continues to drop, levophed drip inreased back to 25 mcq/min
--- NOTE | 2021-03-11 09:40 | XR_ITS ---
PROCEDURE: XR CHEST PORTABLE CLINICAL HISTORY: central line placement COMPARISON: CR XR CHEST PORTABLE from 03/06/2021 CR XR CHEST PORTABLE from 03/09/2021 CR XR CHEST PORTABLE from 03/10/2021 FINDINGS: Status post right IJ central line placement. The tip overlies the region of the right hilum in the area of the superior vena cava. No evidence of pneumothorax. There is persistent diffuse bilateral interstitial/reticular opacification consistent with bilateral pneumonia/interstitial pneumonitis with mild left basilar atelectasis and small left pleural effusion. There is mild cardiomegaly without failure. No acute bony abnormalities. IMPRESSION: Right IJ central venous line in good position without evidence of pneumothorax. No change in the diffuse interstitial lung disease. Dictated by: Colt Espinal MD 03/11/2021 09:57 Colt Espinal MD in OV 03/11/2021 09:57
--- NOTE | 2021-03-11 10:00 | HMH.GSCON ---
*Admission Date: 03/06/21 *Reason for consult:: Inadequate venous access *History of present illness: This is a 75-year-old female with inadequate venous access. The primary service and critical care service has requested triple-lumen catheter placement. Forwarded from critical care note: Patient BiPAP altered, intermittently responding to commands. Much of history is obtained from chart review. Ms. Zarco is a 75-year-old woman presented to emergency department from alf concerning for vaginal bleeding however she had a hysterectomy neurology was called for further management of hematuria improved since her admission per patient also admitted with worsening renal function and worsening volume overload status and her respiratory status gradually worsened needing nasal cannula and BiPAP to maintain her oxygen saturation pulmonary was called for further management. She is also being managed for Proteus mirabilis UTI and has been on ceftriaxone since admission. Review of Systems - Review of Systems Review of systems:: unable to obtain - *Neurologic Reports abnormal walking, Denies seizure-like activity [facility] History Medical History: Reports:: Gall Bladder Disease, Gastroesophageal Reflux Disease(GERD), Hypertension Denies:: Internal Pacemaker, Seizures *Have you ever received a pneumonia vaccine?: Yes *Have you received a flu vaccine this season?: Yes Other Medical History: Reports: Anemia, Arthritis Laterality Cases: Right: Arthroscopy Shoulder Other Surgeries: Yes: Appendectomy, Cholecystectomy, Colonoscopy, Hysterectomy-Total. No: Pacemaker Amputation: No Fractures: Yes - *Social History Smoking Status: Former smoker Alcohol Intake: never Substance Use Type: denies use *Occupational Status:: retired Household Members: family *Travel in the last 8 weeks: None Family Hx:: Unable to obtain [facility] Medications Medication Instructions Recorded Confirmed Type Dicyclomine HCl [Bentyl 10mg 10 mg PO DAILY 03/05/21 03/05/21 History capsule] Donepezil HCl [Aricept 10mg 10 mg PO HS 03/05/21 03/05/21 History tablet] Fluticasone Furoate [Flonase 1 spray NS BID 03/05/21 03/05/21 History Sensimist] Gabapentin [Gabapentin 100mg Cap] 100 mg PO DAILY 03/05/21 03/05/21 History Gabapentin [Gabapentin 100mg Cap] 200 mg PO HS 03/05/21 03/05/21 History Ibuprofen [Ibuprofen 400mg 400 mg PO BID 03/05/21 03/05/21 History Tablet] Levothyroxine Sodium 75 mcg PO DAILY 03/05/21 03/05/21 History [Levothyroxine 75mcg (0.075mg) Tab] Loperamide HCl [Anti-Diarrheal] 2 mg PO BID 03/05/21 03/05/21 History Melatonin 5 mg PO HS 03/05/21 03/05/21 History Rifaximin [Xifaxan 550mg Tablet] 550 mg PO BID 03/05/21 03/05/21 History Sertraline HCl [Zoloft 100mg 200 mg PO DAILY 03/05/21 03/05/21 History tablet] Spironolactone [Aldactone 100mg 100 mg PO DAILY 03/05/21 03/05/21 History Tab] Allergies Allergy/AdvReac Type Severity Reaction Status Date / Time aspirin Allergy Mild Verified 09/03/19 11:53 cephalexin [From Keflex] Allergy Mild sick to Verified 09/03/19 11:53 stomach codeine Allergy Mild Verified 09/03/19 11:53 Penicillins Allergy Mild Verified 09/03/19 11:53 tramadol Allergy Mild Verified 09/03/19 11:53 Exam Vital signs and Labs for Last 24 Hours: Temp Pulse Resp BP Pulse Ox 98 F 133 H 18 124/37 L 96 03/11/21 04:00 03/11/21 06:00 03/11/21 06:00 03/11/21 06:00 03/11/21 06:00 Laboratory Results - last 24 hr 03/10/21 12:37: Random Glucose 96 03/10/21 15:25: Specimen Source Left brachial, O2 % 80%, ABG pH 7.16 L*, ABG pCO2 38.7, ABG pO2 35.4 L, ABG HCO3 13.6 L, ABG Total CO2 14.8 L, ABG O2 Saturation 68 L*, ABG Base Excess -15.0 L, Colt Test Acceptable 03/10/21 15:25: ABG Lactate 2.6 H 03/10/21 22:26: ABG pH 7.25 L, ABG pCO2 32.9 L, ABG pO2 81.8, ABG HCO3 14.2 L, ABG Total CO2 15.2 L, ABG O2 Saturation 96, ABG Base Excess -13.0 L 03/10/21 23:00: Specimen Source Rig
--- NOTE | 2021-03-11 10:03 | HMH.OPNOTE ---
Date of procedure: 03/11/21 Pre-op Diagnosis:: Inadequate venous access Post-op Diagnosis:: Same Procedure performed:: 7 Bangladeshi triple-lumen catheter placement (right internal jugular access) Surgeon:: Chino Layton MD Anesthesia: local Estimated blood loss (mL): 5 Operative findings:: Infraclavicular soft tissue thickening noted; therefore, internal jugular utilized. Operative note:: After informed consent was obtained the patient was maintained in a supine position. Her right neck and chest were prepped and draped in a sterile fashion. Evaluation revealed fairly significant infraclavicular soft tissue thickening. The decision was made to proceed with internal jugular access. After infiltration local anesthetic the right internal jugular vein was located with a finder needle. A large bore angio cath was then utilized to access the vein. Utilizing a modified Seldinger technique a 7 Bangladeshi triple-lumen catheter was placed in position and secured at 17 cm. All ports flushed. Chest x-ray is pending. Condition: other (Guarded) Disposition: no change Specimens:: None Complications:: No immediate.
--- NOTE | 2021-03-11 10:47 | P.PCN_ITS ---
[facility] Procedure Note Procedure Note:: Intubation: RSI with 60mg Propofol and 50 mg Succinylcholine. Intubated with Glidescope blade 4. ETT 7.5. Atraumatic. Oropharynx suctioned. Patient tolerated well. VSS. Report given to RN and respiratory therapist.
--- NOTE | 2021-03-11 11:09 | XR_ITS ---
PROCEDURE: XR CHEST PORTABLE CLINICAL HISTORY: confirm ET tube and NG tube placement COMPARISON: CR XR CHEST PORTABLE from 03/09/2021 CR XR CHEST PORTABLE from 03/10/2021 CR XR CHEST PORTABLE from 03/11/2021 FINDINGS: 1103 hours. Endotracheal tube has been inserted. The tip is in good position 3 cm above the ayah. Nasogastric tube has also been inserted. The tip is not visible on the image but is well below the GE junction. Right IJ CVL remains in place with tip in the region the SVC. No change in the diffuse bilateral interstitial opacification. There is some increase in the left lower lobe atelectasis or infiltrate with small left effusion. IMPRESSION: Tubes and lines are in good position. Persistent diffuse bilateral interstitial opacification with increasing left basilar atelectasis or infiltrate Dictated by: Colt Espinal MD 03/11/2021 11:19 Colt Espinal MD in OV 03/11/2021 11:19
[2021-03-11 11:21] LABS: ABG Base Excess -19.2 mmol/L (-2.4-2.3); ABG HCO3 11.4 mmhg (22.0-26.0); ABG Oxygen Saturation 98 % (90-100); ABG PCO2 42.8 mmhg (35.0-45.0); ABG PO2 143.1 mmhg (80-100); ABG TCO2 12.7 mmhg (23-27)
[2021-03-11 11:22] LABS: Allen's Test Patient Unable; Source Left Femoral
--- NOTE | 2021-03-11 11:22 | PC.NURSE ---
late entry note: 03/10/21 1210 upon moving patient to stepdown unit it was noted that patient morning labs showed glucose of 62. checked fsbs and it was noted to be 47. a second check done per protocol and noted to be 48. amp of d50 given at 1220.. random draw of glucose done after that with improvement of glucose
[2021-03-11 11:27] LABS: Oxygen 100 %
[2021-03-11 11:28] LABS: PEEP 5; Pressure Support 8; Vent Rate 20
[2021-03-11 11:29] LABS: ABG PH 7.04 mmol/L (7.35-7.45)
--- NOTE | 2021-03-11 11:44 | ECG_ITS ---
APPROVED REPORT Exam: Resting ECG HR:146 bpm ECG Measurements Heart Rate 146 AXES [place] 196 P 50 QRSd 60 QRS -43 QT 288 T 55 QTc 448 Conclusion Sinus tachycardia with frequent and consecutive premature ventricular complexes and fusion complexes Left axis deviation Low voltage QRS Inferior infarct, possibly acute Anterolateral infarct, age undetermined ACUTE [place] Consider right ventricular involvement in acute inferior infarct Abnormal ECG Electronically signed by : Michael Ratliff, 03/12/2021 10:21:07
--- NOTE | 2021-03-11 11:48 | PC.NURSE ---
I have called ,, and [facility] all do not have beds at this time.
--- NOTE | 2021-03-11 11:54 | HMH.ACPN2 ---
Internal Medicine - PN: Subj *Date: 03/11/21 *Time: 08:00 Interval history: pt nonresposive, pt was accepted at [facility] but family turned down transfer. this am they want to transfer. Exam Vital signs and Labs for Last 24 Hours: Temp Pulse Resp BP Pulse Ox 98 F 133 H 18 124/37 L 96 03/11/21 04:00 03/11/21 06:00 03/11/21 06:00 03/11/21 06:00 03/11/21 06:00 Laboratory Results - last 24 hr 03/10/21 12:37: Random Glucose 96 03/10/21 15:25: Specimen Source Left brachial, O2 % 80%, ABG pH 7.16 L*, ABG pCO2 38.7, ABG pO2 35.4 L, ABG HCO3 13.6 L, ABG Total CO2 14.8 L, ABG O2 Saturation 68 L*, ABG Base Excess -15.0 L, Colt Test Acceptable 03/10/21 15:25: ABG Lactate 2.6 H 03/10/21 22:26: ABG pH 7.25 L, ABG pCO2 32.9 L, ABG pO2 81.8, ABG HCO3 14.2 L, ABG Total CO2 15.2 L, ABG O2 Saturation 96, ABG Base Excess -13.0 L 03/10/21 23:00: Specimen Source Right brachial, O2 % 80, ABG pH 7.27 L, ABG pCO2 30.3 L, ABG pO2 91.5, ABG HCO3 13.4 L, ABG Total CO2 14.4 L, ABG O2 Saturation 97, ABG Base Excess -13.5 L, Colt Test Non applicable 03/11/21 11:18: Specimen Source Left femoral, O2 % 100, ABG pH 7.04 L*, ABG pCO2 42.8, ABG pO2 143.1 H, ABG HCO3 11.4 L, ABG Total CO2 12.7 L, ABG O2 Saturation 98, ABG Base Excess -19.2 L, Colt Test Patient unable, Vent Rate 20, PEEP 5 I & O for Last 24 hours: Intake & Output 03/08/21 03/09/21 03/10/21 03/11/21 11:59 11:59 11:59 11:59 Intake Total 903 / 903 1420 / 1420 2352 / 2352 3460.473 / 3460.473 Output Total 400 / 400 35193 / 02868 300 / 300 300 / 300 Balance 503 / 503 -8680 / -8680 2051 3160.473 / 3160.473 Weight 126 lb 128 lb 3 oz 137 lb 1 oz 137 lb 13.011 oz - Constitutional moderate distress - *Routine HEENT Exam Head: Present: normocephalic Eye: Present: PERRL ENT: Present: mucous membranes moist - *Routine Neck Exam Present: supple. Absent: lymphadenopathy - *Routine Respiratory Exam Present: CTA bilaterally Comments: on bipap - *Routine Cardiovascular Exam Present: RRR - *Routine Abdominal Exam Present: soft, normoactive bowel sounds. Absent: tenderness - *Routine Exam Comments: gray at bedside - *Routine Extremities Exam Present: edema. Absent: cyanosis, clubbing Comments: third spacing to connor arms and legs - *Routine Skin Exam Present: warm, wounds. Absent: rash Comments: rt heel stage 2 on heel, scabbed area to left great toe - *Routine Neurological Exam nonresponsive - Routine Psychiatric Exam Present: unable to assess Assessment and Plan (1) Thrombocytopenia Status: Acute Category: Medical Code(s): D69.6 - Thrombocytopenia, unspecified (2) YURI (acute kidney injury) Status: Acute Category: Medical Code(s): N17.9 - Acute kidney failure, unspecified (3) Acute urinary retention Status: Acute Category: Medical Code(s): R33.8 - Other retention of urine (4) Hematuria Status: Acute Qualifiers: Hematuria type: gross Qualified Code(s): R31.0 - Gross hematuria Category: Medical Code(s): R31.9 - Hematuria, unspecified (5) Anemia Status: Chronic Qualifiers: Anemia type: other cause Other causes of anemia: other cause, not classified Qualified Code(s): D64.89 - Other specified anemias Category: Medical Code(s): D64.9 - Anemia, unspecified (6) UTI (urinary tract infection) Status: Acute Qualifiers: Urinary tract infection type: site unspecified Hematuria presence: with hematuria Qualified Code(s): N39.0 - Urinary tract infection, site not specified; R31.9 - Hematuria, unspecified Category: Medical Code(s): N39.0 - Urinary tract infection, site not specified (7) Pertussis Status: Acute Category: Medical Code(s): A37.90 - Whooping cough, unspecified species without pneumonia (8) Hypothyroidism (acquired) Status: Acute Category: Medical Code(s): E03.9 - Hypothyroidism, unspecified (9) Bladder mass Status: Acute Category:
[2021-03-11 12:01] LABS: Basophils # 0.1 K/mm3 (0-0.2); Basophils % 0.3 % (0.1-2.0); Eosinophils % 0.1 % (0.1-12.0); Hemoglobin 12.8 g/dL (12.2-16.2); Lymphocytes # 1.5 K/mm3 (0.7-4.5); Lymphocytes % 8.7 % (10-50); Mean Corpuscular HGB Conc 32.1 g/dL (31.8-35.4); Mean Corpuscular Volume 87.2 fl (81-99); Mean Platelet Volume 8.9 fl (7.4-10.4); Monocytes # 0.6 K/mm3 (0.1-1.0); Monocytes % 3.6 % (1.7-9.3); Neutrophils # 15.1 K/mm3 (1.8-7.8); Neutrophils % 87.2 % (37.0-80.0); Platelet Count 273 K/mm3 (142-424); Red Blood Count 4.59 M/mm3 (4.20-5.40); Red Cell Distribution Width 19.8 % (11.5-17.5); White Blood Count 17.3 K/mm3 (4.8-10.8)
[2021-03-11 12:05] LABS: MANUAL DIFFERENTIAL MANUAL DIFFERENTIAL (MANUAL DIFF)
--- NOTE | 2021-03-11 12:23 | PC.NURSE ---
1149 notified Janessa AMATO of pt EKG showing Acute NV. pt bp has dropped. Paola notified Dr Jay while on the phone with me 1158 Dr Lewis was notified by myself and a craig of change in pt condition as well as EKG showing Acute mi
--- NOTE | 2021-03-11 12:32 | HMH.CONFU ---
Internal Medicine - PN: Subj *Date: 03/11/21 *Time: 12:32 Interval history: 75-year-old white female with recent gross hematuria and right-sided hydroureteronephrosis has taken a turn for the worse since Monday. She was placed on BiPAP last evening and this morning required intubation. She is currently hemodynamically unstable with low blood pressure and on maximal dose of Levophed. Labs indicate a metabolic acidosis and creatinine of 2.5. These values have been stable since her admission but her clinical course is deteriorating today. Her urine has remained clear in her Ferguson bag will last 2 days. Her urine output has dropped off today. Exam Vital signs and Labs for Last 24 Hours: Temp Pulse Resp BP Pulse Ox 97.6 F 133 H 18 122/50 L 96 03/11/21 11:39 03/11/21 06:00 03/11/21 06:00 03/11/21 11:39 03/11/21 06:00 Laboratory Results - last 24 hr 03/10/21 12:37: Random Glucose 96 03/10/21 15:25: Specimen Source Left brachial, O2 % 80%, ABG pH 7.16 L*, ABG pCO2 38.7, ABG pO2 35.4 L, ABG HCO3 13.6 L, ABG Total CO2 14.8 L, ABG O2 Saturation 68 L*, ABG Base Excess -15.0 L, Colt Test Acceptable 03/10/21 15:25: ABG Lactate 2.6 H 03/10/21 22:26: ABG pH 7.25 L, ABG pCO2 32.9 L, ABG pO2 81.8, ABG HCO3 14.2 L, ABG Total CO2 15.2 L, ABG O2 Saturation 96, ABG Base Excess -13.0 L 03/10/21 23:00: Specimen Source Right brachial, O2 % 80, ABG pH 7.27 L, ABG pCO2 30.3 L, ABG pO2 91.5, ABG HCO3 13.4 L, ABG Total CO2 14.4 L, ABG O2 Saturation 97, ABG Base Excess -13.5 L, Colt Test Non applicable 03/11/21 11:18: Specimen Source Left femoral, O2 % 100, ABG pH 7.04 L*, ABG pCO2 42.8, ABG pO2 143.1 H, ABG HCO3 11.4 L, ABG Total CO2 12.7 L, ABG O2 Saturation 98, ABG Base Excess -19.2 L, Colt Test Patient unable, Vent Rate 20, PEEP 5 03/11/21 11:50: WBC 17.3 H D, RBC 4.59, Hgb 12.8, Hct 40.0, MCV 87.2, MCH 28.0, MCHC 32.1, RDW 19.8 H, Plt Count 273 D, MPV 8.9, Neut % (Auto) 87.2 H, Lymph % (Auto) 8.7 L, [place] % (Auto) 3.6, Eos % (Auto) 0.1, Baso % (Auto) 0.3, Neut # (Auto) 15.1 H, Lymph # (Auto) 1.5, [place] # (Auto) 0.6, Eos # (Auto) 0.0, Baso # (Auto) 0.1 I & O for Last 24 hours: Intake & Output 03/08/21 03/09/21 03/10/21 03/11/21 23:59 23:59 23:59 23:59 Intake Total 1170 / 1170 490 / 490 3185.736 / 3185.736 2386.737 / 2386.737 Output Total 25794 / 84729 100 / 100 200 / 200 300 / 300 Balance -8930 / -8930 390 / 390 2985.736 / 2985.736 2086.737 / 2086.737 Weight 57.153 kg 58.145 kg 62 kg 62.5 kg - Constitutional thin - *Routine HEENT Exam Head: Present: normocephalic - *Routine Neck Exam Absent: lymphadenopathy - *Routine Respiratory Exam Present: patient mechanically ventilated - *Routine Cardiovascular Exam Present: tachycardia - *Routine Abdominal Exam Absent: distended - *Routine Extremities Exam Present: clubbing, edema - *Routine Skin Exam Present: mottling. Absent: rash - *Routine Neurological Exam Absent: alert, oriented X3 pt intubated Assessment and Plan (1) Thrombocytopenia Status: Acute Category: Medical Code(s): D69.6 - Thrombocytopenia, unspecified (2) YURI (acute kidney injury) Status: Acute Category: Medical Code(s): N17.9 - Acute kidney failure, unspecified (3) Acute urinary retention Status: Acute Category: Medical Code(s): R33.8 - Other retention of urine (4) Hematuria Status: Acute Qualifiers: Hematuria type: gross Qualified Code(s): R31.0 - Gross hematuria Category: Medical Code(s): R31.9 - Hematuria, unspecified 75-year-old white female currently in critical condition. She has had some recent gross hematuria and cystoscopy was scheduled for tomorrow. She also has some right-sided hydroureteronephrosis and she was scheduled for possible TURBT and stent placement. She is certainly not a surgical candidate as it stands today. If she does make a turn for the better we will consider proceeding tomorrow. (5) Anemia Status: Chronic Qualifiers:
--- NOTE | 2021-03-11 12:37 | HMH.PNCARD ---
Subjective Date: 03/11/21 Time: 12:00 Principal diagnosis: metabolic acidosis, abnormal EKG Interval history: 75-year-old white female in bed on mechanical ventilation and minimally responsive. She continues on Levophed drip with hypotension and persistent acidemia. EKG shows either acute TX or changes related to acidemia. Blood pressure continues to require maximum Levophed support. Discussed with the family that the patient most likely will not make it through today. Was recommended that she not have any CPR or electrical shocks and be kept comfortable. Patient's son and daughter are agreeable to this recommendation per Dr. Day. Exam Vital signs and Labs for Last 24 Hours: Temp Pulse Resp BP Pulse Ox 97.6 F 133 H 18 122/50 L 96 03/11/21 11:39 03/11/21 06:00 03/11/21 06:00 03/11/21 11:39 03/11/21 06:00 Laboratory Results - last 24 hr 03/10/21 12:37: Random Glucose 96 03/10/21 15:25: Specimen Source Left brachial, O2 % 80%, ABG pH 7.16 L*, ABG pCO2 38.7, ABG pO2 35.4 L, ABG HCO3 13.6 L, ABG Total CO2 14.8 L, ABG O2 Saturation 68 L*, ABG Base Excess -15.0 L, Colt Test Acceptable 03/10/21 15:25: ABG Lactate 2.6 H 03/10/21 22:26: ABG pH 7.25 L, ABG pCO2 32.9 L, ABG pO2 81.8, ABG HCO3 14.2 L, ABG Total CO2 15.2 L, ABG O2 Saturation 96, ABG Base Excess -13.0 L 03/10/21 23:00: Specimen Source Right brachial, O2 % 80, ABG pH 7.27 L, ABG pCO2 30.3 L, ABG pO2 91.5, ABG HCO3 13.4 L, ABG Total CO2 14.4 L, ABG O2 Saturation 97, ABG Base Excess -13.5 L, Colt Test Non applicable 03/11/21 11:18: Specimen Source Left femoral, O2 % 100, ABG pH 7.04 L*, ABG pCO2 42.8, ABG pO2 143.1 H, ABG HCO3 11.4 L, ABG Total CO2 12.7 L, ABG O2 Saturation 98, ABG Base Excess -19.2 L, Colt Test Patient unable, Vent Rate 20, PEEP 5 03/11/21 11:50: WBC 17.3 H D, RBC 4.59, Hgb 12.8, Hct 40.0, MCV 87.2, MCH 28.0, MCHC 32.1, RDW 19.8 H, Plt Count 273 D, MPV 8.9, Neut % (Auto) 87.2 H, Lymph % (Auto) 8.7 L, [place] % (Auto) 3.6, Eos % (Auto) 0.1, Baso % (Auto) 0.3, Neut # (Auto) 15.1 H, Lymph # (Auto) 1.5, [place] # (Auto) 0.6, Eos # (Auto) 0.0, Baso # (Auto) 0.1 I & O for Last 24 hours: Intake & Output 03/09/21 03/10/21 03/11/21 03/12/21 11:59 11:59 11:59 11:59 Intake Total 1420 / 1420 2352 / 2352 3460.473 / 3460.473 Output Total 38909 / 26262 300 / 300 300 / 300 Balance -8680 / -8680 2051 3160.473 / 3160.473 Weight 128 lb 3 oz 137 lb 1 oz 137 lb 12.623 oz - Constitutional no acute distress, somnolent - *Routine Respiratory Exam Present: decreased breath sounds, diminished air movement - *Routine Cardiovascular Exam Present: RRR, tachycardia - *Routine Extremities Exam Present: edema, extremity cold to touch. Absent: cyanosis, clubbing - *Routine Skin Exam Present: mottling. Absent: rash Progress Note: A&P (1) Thrombocytopenia Status: Acute (2) YURI (acute kidney injury) Status: Acute (3) Acute urinary retention Status: Acute (4) Hematuria Status: Acute (5) Anemia Status: Chronic (6) UTI (urinary tract infection) Status: Acute (7) Pertussis Status: Acute (8) Hypothyroidism (acquired) Status: Acute (9) Bladder mass Status: Acute (10) Proteus mirabilis infection Status: Acute (11) HOYOS (nonalcoholic steatohepatitis) Status: Acute (12) Respiratory failure Status: Acute (13) Poor venous access Status: Acute Assessment and Plan for All Diagnoses:: Multifactorial metabolic acidosis with multiorgan failure. Patient is not a candidate for cardiac catheterization. Recommend comfort measures due to extremely poor prognosis.
[2021-03-11 12:39] LABS: Anion Gap 20.6 mEq/L (5-15); Blood Urea Nitrogen 50 mg/dl (7-17); Chloride 115 mmol/L (98-107); Creatinine Clearance Estimated 15 mL/min (50-200); Estimated Glomerular Filt Rate 15 ml/min (>60); GFR (African American) 18 ML/MIN (>60); Glucose 67 mg/dl (74-100); Potassium 4.6 mmoL/L (3.5-5.1); Sodium 140 mmol/L (136-145)
[2021-03-11 12:43] LABS: Lymphocytes % 9 % (10-50); Monocytes % 3 % (2-9); Neutrophils % 85 % (42-76); Total Cells Counted 100
[2021-03-11 12:44] LABS: Acanthocytes 1+; Burr Cells 1+; Nucleated Red Blood Cells 3; Platelet Estimate Normal; Poikilocytosis 2+
[2021-03-11 12:46] LABS: Calcium 6.6 mg/dl (8.4-10.2); Carbon Dioxide 9 mmol/L (22.0-30.0)
--- NOTE | 2021-03-11 14:12 | HMH.PULMPN ---
Internal Medicine - PN: Subj *Date: 03/11/21 *Time: 14:12 Interval history: Patient respiratory and clinical status gradually worsened overnight. Exam - Constitutional Constitutional:: Absent: no acute distress, comfortable - HENMT Exam HENMT: Present: normocephalic, moist mucous membranes - Neck Exam Neck:: Present: thyroid normal - Respiratory Exam Respiratory:: Present: respiratory distress, decreased breath sounds. Absent: able to speak in complete sentences, crackles - Cardiovascular Exam Cardiac:: Present: S1, S2 - Skin Exam Skin: Present: no rash - Neurological Exam Neurological: Absent: alert, awake, normal cognition, oriented X3 - Extremities Exam Extremities: Present: no clubbing, edema, cyanosis Assessment and Plan (1) Thrombocytopenia Status: Acute Category: Medical Code(s): D69.6 - Thrombocytopenia, unspecified (2) YURI (acute kidney injury) Status: Acute Category: Medical Code(s): N17.9 - Acute kidney failure, unspecified (3) Acute urinary retention Status: Acute Category: Medical Code(s): R33.8 - Other retention of urine (4) Hematuria Status: Acute Qualifiers: Hematuria type: gross Qualified Code(s): R31.0 - Gross hematuria Category: Medical Code(s): R31.9 - Hematuria, unspecified (5) Anemia Status: Chronic Qualifiers: Anemia type: other cause Other causes of anemia: other cause, not classified Qualified Code(s): D64.89 - Other specified anemias Category: Medical Code(s): D64.9 - Anemia, unspecified (6) UTI (urinary tract infection) Status: Acute Qualifiers: Urinary tract infection type: site unspecified Hematuria presence: with hematuria Qualified Code(s): N39.0 - Urinary tract infection, site not specified; R31.9 - Hematuria, unspecified Category: Medical Code(s): N39.0 - Urinary tract infection, site not specified (7) Pertussis Status: Acute Category: Medical Code(s): A37.90 - Whooping cough, unspecified species without pneumonia (8) Hypothyroidism (acquired) Status: Acute Category: Medical Code(s): E03.9 - Hypothyroidism, unspecified (9) Bladder mass Status: Acute Category: Medical Code(s): N32.89 - Other specified disorders of bladder (10) Proteus mirabilis infection Status: Acute Category: Medical Code(s): A49.8 - Other bacterial infections of unspecified site (11) HOYOS (nonalcoholic steatohepatitis) Status: Acute Category: Medical Code(s): K75.81 - Nonalcoholic steatohepatitis (HOYOS) (12) Respiratory failure Status: Acute Category: Medical Code(s): J96.90 - Respiratory failure, unspecified, unspecified whether with hypoxia or hypercapnia (13) Poor venous access Status: Acute Category: Medical Code(s): I87.8 - Other specified disorders of veins - Assessment and plan all Dx Assessment and Plan for all problems:: #Acute hypoxic respiratory failure: #Proteus mirabilis UTI: 75-year-old admit hospital for vaginal bleeding, worsening renal function and Proteus mirabilis UTI. Patient clinical status gradually worsened with hospital admission worsening respiratory failure and hemodynamics. ABG showed non-anion gap metabolic acidosis with partical respiratory compensation Res PCR +ve for B.petrusis X-ray also showed worsening volume status / Air space disease. Overall net positive since admission (Patient has a documented outs of 8930 mL on 03/08 which seems like an error, will clarify). LE Doppler negative for DVT from 03/09 Patient antibiotics were escalated to cefepime yesterday. Patient renal function & metabolic acidosis gradually worsened yesterday and after talking to family we have initiated the transfer however patient family refused transfer overnight. Patient clinical status continued to worsen overnight. Needing vasopressor requirement. Surgery was called and central line was placed. Plan was to intubate to manage her worsening respiratory status rachael
--- NOTE | 2021-03-11 17:04 | PC.NURSE ---
TERMINALLY EXTUBATED PT @ 8105.
--- NOTE | 2021-03-11 17:26 | PC.NURSE ---
1039- Patient intubated by Carola Young at bedside with 7.5 ETT 20@lip 1045-16F NG tube placed at this time @60 1119- CXR completed with confirmation of placement of ETT and NG tube 1135- Rhythm changed noted on monitor, called for stat EKG, patient noted to be mottled on BLE, 1140- BP decreasing despite levophed current BP 40/16, manual blood pressure unable to be auscultated at this time, levophed increased to 30mcg at this time 1144- EKG completed showing acute AR, Dr Day notified who states he does not want to call STEMI alert but is coming to bedside now 1149- Janessa Farris notified at this time that patient had EKG acute AR and Dr Day was coming to bedside 1150- Dr Day at bedside talking to family at this time, family wishes to make patient a DNR and to withdraw care, DNR signed and placed on chart 1154- Dr Lewis notified of change in patients condition [id number]- Patients family members at bedside visiting 1545- vasopressors turned off and patient extubated at this time per families wishes 1600- Patient asystolic per telemetry, no respirations noted, Dr Lambert ER doctor at bedside to pronounce, TOD 1600 1615- [facility] contacted, ruled out for donation, spoke with Kandice Razo, case # [id number]- Post Mortem care completed at this time, [facility] notified at this time that patient is ready for transport
--- NOTE | 2021-03-11 18:25 | P.DN_ITS ---
Pronouncement Note - Date and Time of Date of : 03/11/21 Time of : 16:00 - PCOD Preliminary cause of : Cardiac arrest - Additional Data Confirmation of : no pulse, no respirations, no heart sounds, pupils fixed and dilated Family: at bedside Additional persons at bedside: other (Family) Attending/PCP notified?: Yes Attending physician: Hector Interiano MD Was code activated?: No Autopsy requested?: No finished yarn examiner notified?: No Organ bank notified?: Yes Advance directives: No
--- NOTE | 2021-03-11 18:28 | PC.NURSE ---
1821-Released body to [facility] at this time
[2021-03-12 14:47] LABS: Calcium, Ionized 3.4 mg/dL (4.5-5.6)
== END 2021-03-11 18:22 | disposition expired | DRG 813 ==
LOC: ER 15:49 → 2ND 03-06 07:48
PROVIDERS: Family Medicine; Internal Medicine; Internal Medicine Pulmonary Disease; Nurse Practitioner Family; Admitting Provider Emergency Medicine; Emergency Provider Family Medicine; PCP Emergency Medicine; Visit Provider Emergency Medicine
DX: D69.6 Thrombocytopenia, unspecified (principal); J96.00 Acute respiratory failure, unspecified whether with hypoxia or hypercapnia; I21.4 Non-ST elevation (NSTEMI) myocardial infarction; N17.9 Acute kidney failure, unspecified; A37.90 Whooping cough, unspecified species without pneumonia; N39.0 Urinary tract infection, site not specified; N13.6 Pyonephrosis; D49.4 Neoplasm of unspecified behavior of bladder; Z87.891 Personal history of nicotine dependence; E03.9 Hypothyroidism, unspecified; K21.9 Gastro-esophageal reflux disease without esophagitis; D64.9 Anemia, unspecified; Z79.899 Other long term (current) drug therapy; Z88.0 Allergy status to penicillin; Z88.5 Allergy status to narcotic agent; Z88.8 Allergy status to other drugs, medicaments and biological substances; K75.81 Nonalcoholic steatohepatitis (NASH); R31.0 Gross hematuria; I27.20 Pulmonary hypertension, unspecified; I11.0 Hypertensive heart disease with heart failure
CPT/HCPCS: 31500; 94002; 36556; 36415; 71045; 74176; 80048; 80076; 81001; 82330; 82803; 82947; 83605; 83880; 84436; 84443; 85007; 85025; 85610; 86850; 87040; 87070; 87077; 87086; 87088; 87186; 87205; 87581; 87633; 87798; 93005; 93306; 93970; 94660; 99284; C1751; J1956; J2405; J2704; P9016; P9047